=== PATIENT | male | born 1970 | race African-American/Black ===

== ENCOUNTER 2020-05-24 14:16 | Inpatient (IN) | payer OTHER, MEDICAID ==
[~2020-05-24] VITALS: Ht 185.4 cm; Wt 92.0 kg
[~2020-05-24 14:16] MED LIST: ACET500T68 PO; ARIP20TA5 PO; CARBAMIDE PEROXIDE; CLOT15CR23 TP; DIPH50CA PO; DIVA-53 PO; DOCU50LI14 PO; EUCA1LOZ MM; HALO5TAB PO; HYDR-3135 PO; HYDR59LO TP; LOPE2TAB27 PO; LORA10TA3 PO; MAGN400O7 PO; METH454P PO; PSEU-57 PO; [UNRECOGNIZED DRUG - CODE] PO; [UNRECOGNIZED DRUG - CODE] PO
--- NOTE | 2020-05-24 15:57 | RAD ---
Exam: Left foot 3 views INDICATION: The third digit cellulitis TECHNIQUE: Frontal, lateral and oblique views of the left foot Comparisons: None FINDINGS: Bone mineralization is normal. No acute or healed fractures. Soft tissues are unremarkable. Joint spaces are well-maintained. IMPRESSION: No acute osseous abnormality. Electronically signed by: Teresa Zhang MD (05/24/2020 3:54 PM) KARYNA
[2020-05-24] MEDS ORDERED: HALOPERIDOL LACTATE 5 MG/ML VIAL. ONE (16:04)
[2020-05-24] MEDS ORDERED: HALOPERIDOL LACTATE 5 MG/ML VIAL. IM ONE ×2 (16:15→16:45)
[2020-05-24] MEDS ORDERED: MORPHINE SULFATE 2 MG/ML VIAL. IV/SQ PRN (16:15)
[2020-05-24] MEDS ORDERED: VANCOMYCIN PER PHARMACY MC ONE (16:15)
[2020-05-24] MEDS ORDERED: IV NORMAL SALINE 1000ML BAG 1,000 ML IV ONE (16:15)
[2020-05-24] MEDS ORDERED: PIPERACILLIN/TAZOBACTAM 4.5 GM in IV NORMAL SALINE 100ML 100 ML IV ONE (16:30)
[2020-05-24] MEDS ORDERED: VANCOMYCIN 2 GM in IV NORMAL SALINE 500ML BAG 500 ML IV ONE (17:00)
[2020-05-24 17:29] LABS: BASO # 0.1 x10^3/uL (0.0-0.2); BASO % 1 % (0-3); EOS # 0.1 x10^3/uL (0.0-0.7); EOS % 1 % (0-3); HEMATOCRIT 44.3 % (39.0-53.0); LYMPH # 1.5 x10^3/uL (1.0-4.8); LYMPH % 21 % (24-48); MEAN CORPUSCULAR HEMOGLOBIN 30 pg (25-35); MEAN CORPUSCULAR HGB CONC 34 g/dL (31-37); MEAN CORPUSCULAR VOLUME 88 fL (79-100); MONO # 0.9 x10^3/uL (0.0-1.1); MONO % 12 % (0-9); NEUT # 4.7 x10^3/uL (1.8-7.7); NEUT % 65 % (31-73); PLATELET COUNT 149 x10^3/uL (140-400); RED BLOOD COUNT 5.03 x10^6/uL (4.30-5.70); RED CELL DISTRIBUTION WIDTH 14.3 % (11.5-14.5); WHITE BLOOD COUNT 7.2 x10^3/uL (4.0-11.0)
--- NOTE | 2020-05-24 17:32 | PHYS DOC ---
Past Medical History Past Medical History: Seizure, Other Additional Past Medical Histor: SEASONAL ALLERGIES, MENTAL RETARDATION Past Surgical History: Other Additional Past Surgical Histo: UNKNOWN Smoking Status: Never Smoker Alcohol Use: None Drug Use: None General Adult EDM: Chief Complaint: TOE PROBLEM HPI: HPI: Patient is a 50 year old man with history of mental retardation coming from a [facility]way presenting today with left toes infection that began 3 days ago. Caregiver reports patient was seen by record center specialist today and was sent to the ED to rule out cellulitis or fracture. Patient unable to give any information. Caregiver does not have much information either. Review of Systems: Review of Systems: Constitutional: Denies fever or chills. [] Eyes: Denies change in visual acuity. [] HENT: Denies nasal congestion or sore throat. [] Respiratory: Denies cough or shortness of breath. [] Cardiovascular: Denies chest pain or edema. [] GI: Denies abdominal pain, nausea, vomiting, bloody stools or diarrhea. [] : Denies dysuria. [] Musculoskeletal: Denies back pain or joint pain. [] Integument: Reports left great toe and third toe infections Neurologic: Denies headache, focal weakness or sensory changes. [] Psychiatric: Denies depression or anxiety. [] Heart Score: Risk Factors: Risk Factors: DM, Current or recent (<one month) smoker, HTN, HLP, family history of CAD, obesity. Risk Scores: Score 0 - 3: 2.5% MACE over next 6 weeks - Discharge Home Score 4 - 6: 20.3% MACE over next 6 weeks - Admit for Clinical Observation Score 7 - 10: 72.7% MACE over next 6 weeks - Early Invasive Strategies Current Medications: Current Medications Medications (Trade) Dose Ordered Sig/Rima Start Time Stop Time Status Last Admin Dose Admin Haloperidol Lactate (Haldol Inj) 5 mg 1X ONCE 05/24/20 16:45 05/24/20 16:46 DC 05/24/20 16:45 5 MG Lorazepam (Ativan Inj) 1 mg 1X ONCE 05/24/20 17:30 05/24/20 17:31 UNV Morphine Sulfate (Morphine Sulfate) 2 mg PRN Q15MIN PRN 05/24/20 16:15 05/25/20 16:14 Piperacillin Sod/ Tazobactam Sod 4.5 gm/Sodium Chloride 100 ml @ 200 mls/hr 1X ONCE 05/24/20 16:30 05/24/20 16:59 DC Sodium Chloride 1,000 ml @ 1,000 mls/hr 1X ONCE 05/24/20 16:15 05/24/20 17:14 DC Vancomycin HCl (Vanco Per Pharmacy) 1 each 1X ONCE 05/24/20 16:15 05/24/20 16:16 UNV Vancomycin HCl 2 gm/Sodium Chloride 500 ml @ 250 mls/hr 1X ONCE 05/24/20 17:00 05/24/20 18:59 Allergies: Allergies: Allergies Coded Allergies Type Severity Reaction Last Updated Verified No Known Drug Allergies 07/31/14 No Physical Exam: PE: Constitutional: Well developed, well nourished, no acute distress, non-toxic appearance. [] HENT: Normocephalic, atraumatic, bilateral external ears normal, oropharynx mo ist, no oral exudates, nose normal. [] Eyes: PERRLA, EOMI, conjunctiva normal, no discharge. [] Neck: Normal range of motion, no tenderness, supple, no stridor. [] Cardiovascular:Heart rate regular rhythm, no murmur [] Lungs & Thorax: Bilateral breath sounds clear to auscultation [] Abdomen: Bowel sounds normal, soft, no tenderness, no masses, no pulsatile masses. [] Skin: Hammertoes, left great toe is erythematous and swollen mildly. The nail appears to be loose and fungal. Left third toe is swollen and erythematous as well. +2 left pedal pulse. Cap refill less than 2 seconds to left toes. Sensation intact. Back: No tenderness, no CVA tenderness. [] Extremities: No tenderness, no cyanosis, no clubbing, ROM intact, no edema. [] Neurologic: Alert and oriented X 1, normal motor function, normal sensory function, no focal deficits noted. [] Psychologic: mentally challenge, screaming and hollowing away Current Patient Data: Vital Signs: Vital Signs Date Time Temp Pulse Resp B/P (MAP) Pulse Ox O2 Delivery O2 Flow Rate FiO2 05/24/20 15:57 97.6 104 18 188/88 (121) 98 Room Air 97.6 EKG: EKG: [] Radiology/Procedures: Radiology/Procedures: []PROCEDURE: FOOT LEFT 3V Exam: Left foot 3 views INDICATION: The third digit cellulitis TECHNIQUE: Frontal, lateral and oblique views of the left foot Comparisons: None FINDINGS: Bone mineralization is normal. No acute or healed fractures. Soft tissues are unremarkable. Joint spaces are well-maintained. IMPRESSION: No acute osseous abnormality. Electronically signed by: Teresa Franco MD (05/24/2020 3:54 PM) [facility] DICTATED and SIGNED BY: TERESA FRANCO MD DATE: 05/24/20 1554 Course & Med Decision Making: Course & Med Decision Making Pertinent Labs and Imaging studies reviewed. (See chart for details) This is a mentally challenged 50-year-old male patient who presents to the ED today with infection to the left great toe and left third toe that the caregivers noted 3 days ago. Patient is severely mentally retarded, he is on Haldol 3 times a day 5 mg as well as Ativan 3 times a day for agitation. He had to be given several doses of the medication before he calmed down. Left foot x-rays negative for any acute findings, labs are negative for any acute findings. Spoke with Dr. Ram who accepted patient for admission. Will start patient on antibiotics Jose Alberto Disclaimer: Jose Alberto Disclaimer: This electronic medical record was generated, in whole or in part, using a voice recognition dictation system. Departure Departure Impression: Primary Impression: Onychomycosis Additional Impression: Cellulitis of toe of left foot Disposition: 09 ADMITTED INPT THIS HOSP Condition: STABLE Referrals: ANDREY HANCOCK MD (PCP) MARCIN DIAZ APRN May 24, 2020 17:32
[2020-05-24 17:37] LABS: CALCIUM 8.5 mg/dL (8.5-10.1); CREATININE 1.1 mg/dL (0.7-1.3); GFR 85.4; POTASSIUM 4.4 mmol/L (3.5-5.1)
[2020-05-24 17:41] LABS: PROTHROMBIN TIME PATIENT 12.9 SEC (11.7-14.0)
[2020-05-24 17:43] LABS: ALBUMIN 3.2 g/dL (3.4-5.0); ALBUMIN/GLOBULIN RATIO 0.8 (1.0-1.7); TOTAL BILIRUBIN 0.3 mg/dL (0.2-1.0); TOTAL PROTEIN 7.1 g/dL (6.4-8.2)
--- NOTE | 2020-05-24 19:08 | PDOC1 ---
History and Physical Date of Service: DOS: DATE: 05/24/20 TIME: 19:06 Chief Complaint: Chief Complain: Possible infection of the toe History of Present Illness: HPI: 50 year old man with history of intellectual disability coming from a [facility] presenting today with left toes infection that began 3 days ago. Caregiver reports patient was seen by csr technician today and was sent to the ED to rule out cellulitis or fracture. Patient unable to give any information. Caregiver does not have much information either. Patient was seen and examined by me in the ED. Patient would not allow me to examine his belly or his toes. Patient is nonverbal and unable to communicate properly his wants or needs. Past Medical/Surgical History: PMH/PSH: Past Medical History: Seizure, SEASONAL ALLERGIES, intellectual disability Past Surgical History: UNKNOWN Allergies: Allergies: Coded Allergies: No Known Drug Allergies (Unverified , 07/31/14) Family History: Family History: Reviewed and none reported Social History: Social History: Smoking Status: Never Smoker Alcohol Use: None Drug Use: None Current Medications: Current Medications Current Medications Haloperidol Lactate (Haldol Inj) 5 mg STK-MED ONCE .ROUTE ; Start 05/24/20 at 16:04; Stop 05/24/20 at 16:04; Status DC Haloperidol Lactate (Haldol Inj) 5 mg 1X ONCE IM Last administered on 05/24/20at 16:10; Start 05/24/20 at 16:15; Stop 05/24/20 at 16:16; Status DC Piperacillin Sod/ Tazobactam Sod 4.5 gm/Sodium Chloride 100 ml @ 200 mls/hr 1X ONCE IV Last administered on 05/24/20at 17:20; Start 05/24/20 at 16:30; Stop 05/24/20 at 16:59; Status DC Vancomycin HCl (Vanco Per Pharmacy) 1 each 1X ONCE [facility] ; Start 05/24/20 at 16:15; Stop 05/24/20 at 17:35; Status DC Morphine Sulfate (Morphine Sulfate) 2 mg PRN Q15MIN PRN IV/SQ PAIN GREATER THAN 3/10; Start 05/24/20 at 16:15; Stop 05/25/20 at 16:14 Sodium Chloride 1,000 ml @ 1,000 mls/hr 1X ONCE IV Last administered on 05/24/20at 17:20; Start 05/24/20 at 16:15; Stop 05/24/20 at 17:14; Status DC Vancomycin HCl 2 gm/Sodium Chloride 500 ml @ 250 mls/hr 1X ONCE IV Last administered on 05/24/20at 18:20; Start 05/24/20 at 17:00; Stop 05/24/20 at 18:59; Status DC Lorazepam (Ativan Inj) 2 mg STK-MED ONCE .ROUTE ; Start 05/24/20 at 16:30; Stop 05/24/20 at 16:31; Status DC Lorazepam (Ativan Inj) 1 mg 1X ONCE IM Last administered on 05/24/20at 16:45; Start 05/24/20 at 16:45; Stop 05/24/20 at 16:46; Status DC Haloperidol Lactate (Haldol Inj) 5 mg 1X ONCE IM Last administered on 05/24/20at 16:45; Start 05/24/20 at 16:45; Stop 05/24/20 at 16:46; Status DC Lorazepam (Ativan Inj) 1 mg 1X ONCE IVP Last administered on 05/24/20at 17:30; Start 05/24/20 at 17:30; Stop 05/24/20 at 17:31; Status DC Lorazepam (Ativan Inj) 1 mg 1X ONCE IVP ; Start 05/24/20 at 18:45; Stop 05/24/20 at 18:46; Status DC Active Scripts Active Reported Sudogest (Pseudoephedrine Hcl) 30 Mg Tablet 30 Mg PO PRN Loperamide (Loperamide Hcl) 2 Mg Tablet 2 Mg PO PRN Hydrocortisone 59 Ml Lotion 1 Shaun TP PRN Linwood 10-325 Tablet (Acetaminophen/Hydrocodone Bitart) 1 Each Tablet 1 Tab PO PRN Q6HRS PRN Gnp Tussin Dm Max Liquid (Guaifenesin/Dextromethorphan) 118 Ml Liquid 2 Tsp PO Q4HRS PRN Milk Of Magnesia (Magnesium Hydroxide) 400 Mg/5 Ml Oral.susp 400 Mg PO PRN Gnp Cough Drops (Eucalyptus/Menthol) 1 Each Lozenge 1 Each MM PRN Gnp Antacid Anti-Gas Liquid (Mag Hydrox/Al Hydrox/Simeth) 355 Ml Oral.susp Unknown Dose PO PRN Diphenhydramine Hcl 50 Mg Capsule 25 Mg PO PRN [debrox solution 6%] Clotrimazole 15 Gm Cream..g. 1 Shaun TP BID Acetaminophen 500 Mg Tablet 1 Tab PO Q4-6HRS PRN Citrucel Powder (Methylcellulose (With Sugar)) 454 Gm Powder 1 PO DAILY Silace (Docusate Sodium) 50 Mg/5 Ml Liquid 10 Ml PO QHS Loratadine 10 Mg Tablet 1 Tab PO DAILY Haloperidol 5 Mg Tablet 5 Mg PO TID Divalproex Sodium 500 Mg Tablet.dr 500 Mg PO TID Abilify (Aripiprazole) 20 Mg Tablet 1 Tab PO DAILY ROS: Review of Systems Review of System REVIEW OF SYSTEMS: GENERAL: Denies weakness SKIN: No bruising, hair changes or rashes. EYES: No blurred, double or loss of vision. NOSE AND THROAT: No history of nosebleeds, hoarseness or sore throat. HEART: No history of palpitations, chest pain or shortness of breath on exertion. LUNGS: Denies cough, hemoptysis, wheezing or shortness of breath. GASTROINTESTINAL: Denies changes in appetite, nausea, vomiting, diarrhea or constipation. GENITOURINARY: No history of frequency, urgency, hesitancy or nocturia. NEUROLOGIC: Denies history of numbness, tingling, or tremor. PSYCHIATRIC: No history of panic, anxiety or depression. ENDOCRINE: No history of heat or cold intolerance, polyuria or polydipsia. EXTREMITIES: Denies joint pain, pain on walking or stiffness. Physical Exam: Vital Signs: Vital Signs Date Time Temp Pulse Resp B/P (MAP) Pulse Ox O2 Delivery O2 Flow Rate FiO2 05/24/20 15:57 97.6 104 18 188/88 (121) 98 Room Air 97.6 Physcial Exam: GEN: No apparent distress. Alert and oriented HEENT: Normal cephalic, atraumatic, external auditory canals are patent EYES: Extraocular muscles are intact, pupil are equally round and reactive to light and accommodation MUSCULOSKELETAL: Well developed , well nourished, good range of motion ENDOCRINE: No thyromegaly was palpated LYMPHATICS: No cervical chain or axillary nodes were noted HEMATOPOIETIC: No bruising NECK: Supple, no JVD, no thyromegaly was noted LUNGS: Clear to auscultation in all lung bernstein without rhonchi or wheezing HEART: RRR, S!, S2 present. Peripheral pulses intact, no obvious murmurs noted ABDOMEN: Soft, nontender. Positive bowel sounds, no organomegaly, normal bowel sounds EXTREMITIES: Without clubbing, cyanosis, or edema. Pedal pulses intact. Negative Homans sign NEUROLOGIC: Normal speech and tone. A&O x 3, moves all extremities, no obvious focal deficits PSYCHIATRIC: Normal affect, normal mood. Stable SKIN: No ulcerations or rashes, good skin turgor, no jaundice VASCULAR: Good capillary refill, neurovascular bundle appears to be intact Labs: Labs: Laboratory Tests Test 05/24/20 17:15 White Blood Count 7.2 x10^3/uL (4.0-11.0) Red Blood Count 5.03 x10^6/uL (4.30-5.70) Hemoglobin 15.0 g/dL (13.0-17.5) Hematocrit 44.3 % (39.0-53.0) Mean Corpuscular Volume 88 fL (79-100) Mean Corpuscular Hemoglobin 30 pg (25-35) Mean Corpuscular Hemoglobin Concent 34 g/dL (31-37) Red Cell Distribution Width 14.3 % (11.5-14.5) Platelet Count 149 x10^3/uL (140-400) Neutrophils (%) (Auto) 65 % (31-73) Lymphocytes (%) (Auto) 21 % (24-48) Monocytes (%) (Auto) 12 % (0-9) Eosinophils (%) (Auto) 1 % (0-3) Basophils (%) (Auto) 1 % (0-3) Neutrophils # (Auto) 4.7 x10^3/uL (1.8-7.7) Lymphocytes # (Auto) 1.5 x10^3/uL (1.0-4.8) Monocytes # (Auto) 0.9 x10^3/uL (0.0-1.1) Eosinophils # (Auto) 0.1 x10^3/uL (0.0-0.7) Basophils # (Auto) 0.1 x10^3/uL (0.0-0.2) Prothrombin Time 12.9 SEC (11.7-14.0) Prothromb Time International Ratio 1.0 (0.8-1.1) Activated Partial Thromboplast Time 28 SEC (24-38) Sodium Level 142 mmol/L (136-145) Potassium Level 4.4 mmol/L (3.5-5.1) Chloride Level 107 mmol/L (98-107) Carbon Dioxide Level 28 mmol/L (21-32) Anion Gap 7 (6-14) Blood Urea Nitrogen 20 mg/dL (8-26) Creatinine 1.1 mg/dL (0.7-1.3) Estimated GFR (Cockcroft-Gault) 85.4 BUN/Creatinine Ratio 18 (6-20) Glucose Level 208 mg/dL (70-99) Lactic Acid Level 1.5 mmol/L (0.4-2.0) Calcium Level 8.5 mg/dL (8.5-10.1) Total Bilirubin 0.3 mg/dL (0.2-1.0) Aspartate Amino Transf (AST/SGOT) 27 U/L (15-37) Alanine Aminotransferase (ALT/SGPT) 26 U/L (16-63) Alkaline Phosphatase 56 U/L (46-116) Creatine Kinase 340 U/L (39-308) Creatine Kinase MB (Mass) 2.8 ng/mL (0.0-3.6) Creatine Kinase MB Relative Index 0.8 % (0-4) Total Protein 7.1 g/dL (6.4-8.2) Albumin 3.2 g/dL (3.4-5.0) Albumin/Globulin Ratio 0.8 (1.0-1.7) Lipase 111 U/L (73-393) Procalcitonin < 0.10 ng/mL (0.00-0.10) Laboratory Tests Test 05/24/20 17:15 White Blood Count 7.2 x10^3/uL (4.0-11.0) Red Blood Count 5.03 x10^6/uL (4.30-5.70) Hemoglobin 15.0 g/dL (13.0-17.5) Hematocrit 44.3 % (39.0-53.0) Mean Corpuscular Volume 88 fL (79-100) Mean Corpuscular Hemoglobin 30 pg (25-35) Mean Corpuscular Hemoglobin Concent 34 g/dL (31-37) Red Cell Distribution Width 14.3 % (11.5-14.5) Platelet Count 149 x10^3/uL (140-400) Neutrophils (%) (Auto) 65 % (31-73) Lymphocytes (%) (Auto) 21 % (24-48) Monocytes (%) (Auto) 12 % (0-9) Eosinophils (%) (Auto) 1 % (0-3) Basophils (%) (Auto) 1 % (0-3) Neutrophils # (Auto) 4.7 x10^3/uL (1.8-7.7) Lymphocytes # (Auto) 1.5 x10^3/uL (1.0-4.8) Monocytes # (Auto) 0.9 x10^3/uL (0.0-1.1) Eosinophils # (Auto) 0.1 x10^3/uL (0.0-0.7) Basophils # (Auto) 0.1 x10^3/uL (0.0-0.2) Prothrombin Time 12.9 SEC (11.7-14.0) Prothromb Time International Ratio 1.0 (0.8-1.1) Activated Partial Thromboplast Time 28 SEC (24-38) Sodium Level 142 mmol/L (136-145) Potassium Level 4.4 mmol/L (3.5-5.1) Chloride Level 107 mmol/L (98-107) Carbon Dioxide Level 28 mmol/L (21-32) Anion Gap 7 (6-14) Blood Urea Nitrogen 20 mg/dL (8-26) Creatinine 1.1 mg/dL (0.7-1.3) Estimated GFR (Cockcroft-Gault) 85.4 BUN/Creatinine Ratio 18 (6-20) Glucose Level 208 mg/dL (70-99) Lactic Acid Level 1.5 mmol/L (0.4-2.0) Calcium Level 8.5 mg/dL (8.5-10.1) Total Bilirubin 0.3 mg/dL (0.2-1.0) Aspartate Amino Transf (AST/SGOT) 27 U/L (15-37) Alanine Aminotransferase (ALT/SGPT) 26 U/L (16-63) Alkaline Phosphatase 56 U/L (46-116) Creatine Kinase 340 U/L (39-308) Creatine Kinase MB (Mass) 2.8 ng/mL (0.0-3.6) Creatine Kinase MB Relative Index 0.8 % (0-4) Total Protein 7.1 g/dL (6.4-8.2) Albumin 3.2 g/dL (3.4-5.0) Albumin/Globulin Ratio 0.8 (1.0-1.7) Lipase 111 U/L (73-393) Procalcitonin < 0.10 ng/mL (0.00-0.10) Images: Images FOOT XR IMPRESSION: No acute osseous abnormality. Assessment/Plan Assessment/Plan Acute cellulitis of the lower extremity digits Concern for gangrene of the left third toe Intellectual disability Hyperglycemia Admit to medicine for further management Ortho consult Wound care consult Continue IV vancomycin Lovenox for DVT prophylaxis ADA diet Full code Discussed with RN and SW Disposition pending evaluation as mentioned above Surrogate decision maker is [facility] Justifications for Admission Other Justification CARLEY ESCALANTE MD May 24, 2020 19:08
[2020-05-24] MEDS ORDERED: ONDANSETRON PF 4 MG/2 ML VIAL. IV PRN (19:15)
[2020-05-24] MEDS ORDERED: DEXTROSE 50% 25 GM / 50ML DISP.SYRIN. IV PRN (20:30)
[2020-05-24] MEDS ORDERED: MAGNESIUM SULFATE 2GM 50 ML IV SCH (20:30)
[2020-05-24] MEDS ORDERED: ACETAMINOPHEN 325 MG TABLET. PO PRN (20:30)
[2020-05-24] MEDS ORDERED: POTASSIUM CHLORIDE 10MEQ 100 ML IV PRN (20:30)
[2020-05-24] MEDS ORDERED: DOCUSATE SODIUM 100 MG CAPSULE. PO PRN (20:30)
[2020-05-24] MEDS ORDERED: POTASSIUM CHLORIDE 20 MEQ TABLET.ER. PO PRN (20:30)
[2020-05-24] MEDS ORDERED: ONDANSETRON PF 4 MG/2 ML VIAL. IVP PRN (20:30)
[2020-05-24] MEDS ORDERED: POTASSIUM CHLORIDE 10MEQ 100 ML IV SCH (20:30)
[2020-05-24] MEDS ORDERED: VANCOMYCIN 1 GM in IV DEXTROSE 5% 250 ML IV ONE (20:30)
[2020-05-24] MEDS ORDERED: SENNOSIDES 8.6 MG TABLET PO PRN (20:30)
[2020-05-24 20:45] VITALS: BP 122/76
[2020-05-24] MEDS ORDERED: ELECTROLYTE (NON-ICU) PROTOCOL. MC PRN (20:45)
[2020-05-24] MEDS ORDERED: MAGNESIUM OXIDE 400 MG TABLET PO SCH (21:00)
[2020-05-24] MEDS: VANCOMYCIN PER PHARMACY MC PRN (21:31)
--- NOTE | 2020-05-24 21:33 | NUR ---
Pharmacy Vancomycin Dosing Note S:Consulted to monitor and dose vancomycin started . O:ANDREY LOERA is a 50 year old M with Cellulitis . Height: 6 feet, 1 inches Weight: 92.0 kg Nelson Body Weight: 79.90 Adjusted Body Weight: 84.74 Dosing Weight: Actual Other Antibiotics: NONE LABS: Last BUN: 20 Last Creatinine: 1.1 Creatinine Clearance: 95 mL/min Last WBC: 7.2 Last Procalcitonin: - Tmax (past 24 hours): 97.6 Microbiology: I/O: 550/ Drug Levels: Last level: on at Last dose given 05/24/20 at 1700 Vancomycin Dosing: Loading Dose: 2000 mg x1 Dosing Weight: Actual Target Trough: 10-20 A: Based on: WEIGHT, CRCL~95 P: 1. INITIATE Vancomycin 1250 mg IV q12h AFTER 2000 MG LOADING DOSE 2. Follow up Trough level on 05/26/20 at 0430 3. Pharmacy will continue to monitor, follow and adjust therapy as needed. NANCY ADAMES, [facility], 05/24/20 [id number]
[2020-05-24] MEDS: HALOPERIDOL LACTATE 5 MG/ML VIAL. IVP PRN (23:02)
[2020-05-25] MEDS ORDERED: HALOPERIDOL LACTATE 5 MG/ML VIAL. IVP PRN (01:15)
[2020-05-25] MEDS: HALOPERIDOL LACTATE 5 MG/ML VIAL. IVP PRN ×4 (01:17→07:52)
[2020-05-25 03:14] VITALS: BP 101/49
[2020-05-25] MEDS ORDERED: VANCOMYCIN 1.25 GM in IV NORMAL SALINE 250ML 250 ML IV SCH (05:00)
[2020-05-25 07:00] VITALS: BP 134/70
[2020-05-25] MEDS: INSULIN LISPRO 300 UNITS/3 ML VIAL. SQ SCH ×3 (08:00→16:47)
[2020-05-25] MEDS: ENOXAPARIN 40 MG/0.4 ML SYRINGE. SQ SCH (09:00)
[2020-05-25 09:11] LABS: BASO % 0 % (0-3); EOS # 0.2 x10^3/uL (0.0-0.7); EOS % 3 % (0-3); HEMATOCRIT 42.1 % (39.0-53.0); HEMOGLOBIN 13.9 g/dL (13.0-17.5); LYMPH # 1.3 x10^3/uL (1.0-4.8); LYMPH % 23 % (24-48); MEAN CORPUSCULAR HEMOGLOBIN 29 pg (25-35); MEAN CORPUSCULAR HGB CONC 33 g/dL (31-37); MEAN CORPUSCULAR VOLUME 89 fL (79-100); MONO # 0.9 x10^3/uL (0.0-1.1); MONO % 15 % (0-9); NEUT # 3.4 x10^3/uL (1.8-7.7); NEUT % 59 % (31-73); PLATELET COUNT 143 x10^3/uL (140-400); RED BLOOD COUNT 4.75 x10^6/uL (4.30-5.70); RED CELL DISTRIBUTION WIDTH 14.4 % (11.5-14.5); WHITE BLOOD COUNT 5.7 x10^3/uL (4.0-11.0)
[2020-05-25 09:27] LABS: CREATININE 0.9 mg/dL (0.7-1.3); GFR 107.6; MAGNESIUM 1.9 mg/dL (1.8-2.4); PHOSPHORUS 2.8 mg/dL (2.6-4.7); POTASSIUM 4.4 mmol/L (3.5-5.1)
--- NOTE | 2020-05-25 09:59 | NUR ---
lovenox nonadmin as pt is up multiple times through out morning walking halls.
--- NOTE | 2020-05-25 10:15 | NUR ---
Wound Care: Patient seen per wound care consult. There is no open wound at this time. The left 3rd toe appears discolored like bruising, but there are no open areas and the nail is intact. X-Ray was negative. Patient unable to provide any information due to mental disability. Ortho has been consulted. Will follow up on 06/01/20 just to reassess toe has remained closed.
--- NOTE | 2020-05-25 10:39 | PDOC2 ---
CONSULT Date of Consult Date of Consult DATE: 05/25/20 TIME: 10:39 Reason for Consult Reason for Consult: infection left toes Identification/Chief Complaint Chief Complaint Possible infection left toes Source Source: Caregiver, Chart review History of Present Illness Reason for Visit: This 50-year-old man is unable to give a history, but lives in a facility and has a problem with his left toes. There was concern there might be infection. He has onychomycosis. The left third toe has turned purple. Current Problem List Problem List Problems Medical Problems: (1) Cellulitis of toe of left foot Status: Acute (2) Onychomycosis Status: Acute Current Medications Current Medications Current Medications Haloperidol Lactate (Haldol Inj) 5 mg STK-MED ONCE .ROUTE ; Start 05/24/20 at 16:04; Stop 05/24/20 at 16:04; Status DC Haloperidol Lactate (Haldol Inj) 5 mg 1X ONCE IM Last administered on 05/24/20at 16:10; Start 05/24/20 at 16:15; Stop 05/24/20 at 16:16; Status DC Piperacillin Sod/ Tazobactam Sod 4.5 gm/Sodium Chloride 100 ml @ 200 mls/hr 1X ONCE IV Last administered on 05/24/20at 17:20; Start 05/24/20 at 16:30; Stop 05/24/20 at 16:59; Status DC Vancomycin HCl (Vanco Per Pharmacy) 1 each 1X ONCE MC Last administered on 05/24/20at 16:15; Start 05/24/20 at 16:15; Stop 05/24/20 at 17:35; Status DC Morphine Sulfate (Morphine Sulfate) 2 mg PRN Q15MIN PRN IV/SQ PAIN GREATER THAN 3/10; Start 05/24/20 at 16:15; Stop 05/25/20 at 16:14 Sodium Chloride 1,000 ml @ 1,000 mls/hr 1X ONCE IV Last administered on 05/24/20at 17:20; Start 05/24/20 at 16:15; Stop 05/24/20 at 17:14; Status DC Vancomycin HCl 2 gm/Sodium Chloride 500 ml @ 250 mls/hr 1X ONCE IV Last administered on 05/24/20at 18:20; Start 05/24/20 at 17:00; Stop 05/24/20 at 18:59; Status DC Lorazepam (Ativan Inj) 2 mg STK-MED ONCE .ROUTE ; Start 05/24/20 at 16:30; Stop 05/24/20 at 16:31; Status DC Lorazepam (Ativan Inj) 1 mg 1X ONCE IM Last administered on 05/24/20at 16:45; Start 05/24/20 at 16:45; Stop 05/24/20 at 16:46; Status DC Haloperidol Lactate (Haldol Inj) 5 mg 1X ONCE IM Last administered on 05/24/20at 16:45; Start 05/24/20 at 16:45; Stop 05/24/20 at 16:46; Status DC Lorazepam (Ativan Inj) 1 mg 1X ONCE IVP Last administered on 05/24/20at 17:30; Start 05/24/20 at 17:30; Stop 05/24/20 at 17:31; Status DC Lorazepam (Ativan Inj) 1 mg 1X ONCE IVP Last administered on 05/24/20at 20:00; Start 05/24/20 at 18:45; Stop 05/24/20 at 18:46; Status DC Ondansetron HCl (Zofran) 4 mg PRN Q8HRS PRN IV NAUSEA/VOMITING; Start 05/24/20 at 19:15; Stop 05/25/20 at 19:14 Haloperidol Lactate (Haldol Inj) 5 mg TID PRN PRN IVP AGITATION Last administered on 05/25/20at 07:52; Start 05/24/20 at 19:15 Lorazepam (Ativan Inj) 1 mg TID PRN PRN IVP ANXIETY / AGITATION Last administered on 05/25/20at 08:25; Start 05/24/20 at 19:15 Sennosides (Senna) 17.2 mg PRN BID PRN PO CONSTIPATION; Start 05/24/20 at 20:30 Docusate Sodium (Colace) 100 mg PRN DAILY PRN PO HARD STOOLS; Start 05/24/20 at 20:30 Ondansetron HCl (Zofran) 4 mg PRN Q6HRS PRN IVP NAUSEA/VOMITING; Start 05/24/20 at 20:30 Potassium Chloride (Klor-Con) 40 meq 1X PRN PO PER PROTOCOL; Start 05/24/20 at 20:30; Status UNV Magnesium Oxide (Magnesium Oxide) 400 mg BID PO ; Start 05/24/20 at 21:00; Stop 05/26/20 at 09:01; Status UNV Potassium Chloride/Water 100 ml @ 100 mls/hr Q1H IV ; Start 05/24/20 at 20:30; Stop 05/25/20 at 00:29; Status UNV Magnesium Sulfate 50 ml @ 25 mls/hr Q24H IV ; Start 05/24/20 at 20:30; Stop 05/26/20 at 22:29; Status UNV Potassium Chloride/Water 100 ml @ 100 mls/hr Q1H PRN IV low k; Start 05/24/20 at 20:30; Status UNV Insulin Human Lispro (HumaLOG) 0-5 UNITS TIDWMEALS SQ ; Start 05/25/20 at 08:00 Dextrose (Dextrose 50%-Water Syringe) 12.5 gm PRN Q15MIN PRN IV SEE COMMENTS; Start 05/24/20 at 20:30 Acetaminophen (Tylenol) 650 mg PRN Q4HRS PRN PO TEMP OVER 100.4F OR MILD PAIN; Start 05/24/20 at 20:30 Vancomycin HCl 1 gm/Dextrose 250 ml @ 250 mls/hr 1X ONCE IV ; Start 05/24/20 at 20:30; Stop 05/24/20 at 20:34; Status DC Vancomycin HCl (Vanco Per Pharmacy) 1 each PRN DAILY PRN MC SEE COMMENTS Last administered on 05/24/20at 21:31; Start 05/24/20 at 20:30 Enoxaparin Sodium (Lovenox 40mg Syringe) 40 mg Q24H SQ ; Start 05/25/20 at 09:00 Info (Non-Icu Electrolyte Protocol) 1 ea CONT PRN PRN MC SEE COMMENTS; Start 05/24/20 at 20:45 Vancomycin HCl 1.25 gm/Sodium Chloride 250 ml @ 167 mls/hr Q12H IV Last administered on 05/25/20at 07:14; Start 05/25/20 at 05:00 Vancomycin HCl (Vancomycin Trough Level) 1 each 1X ONCE MC ; Start 05/26/20 at 04:30; Stop 05/26/20 at 04:31 Haloperidol Lactate (Haldol Inj) 2 mg PRN Q15MIN PRN IVP AGGITATION Last administered on 05/25/20at 03:52; Start 05/25/20 at 01:15; Stop 05/25/20 at 07:00; Status DC Haloperidol Lactate (Haldol Inj) 2 mg 1X PRN IVP AGITATION; Start 05/25/20 at 01:15; Stop 05/25/20 at 01:30; Status DC Lorazepam (Ativan Inj) 1 mg 1X ONCE IVP Last administered on 05/25/20at 01:17; Start 05/25/20 at 01:15; Stop 05/25/20 at 01:16; Status DC Active Scripts Active Reported Sudogest (Pseudoephedrine Hcl) 30 Mg Tablet 30 Mg PO PRN Loperamide (Loperamide Hcl) 2 Mg Tablet 2 Mg PO PRN Hydrocortisone 59 Ml Lotion 1 Shaun TP PRN Paradise 10-325 Tablet (Acetaminophen/Hydrocodone Bitart) 1 Each Tablet 1 Tab PO PRN Q6HRS PRN Gnp Tussin Dm Max Liquid (Guaifenesin/Dextromethorphan) 118 Ml Liquid 2 Tsp PO Q4HRS PRN Milk Of Magnesia (Magnesium Hydroxide) 400 Mg/5 Ml Oral.susp 400 Mg PO PRN Gnp Cough Drops (Eucalyptus/Menthol) 1 Each Lozenge 1 Each MM PRN Gnp Antacid Anti-Gas Liquid (Mag Hydrox/Al Hydrox/Simeth) 355 Ml Oral.susp Unknown Dose PO PRN Diphenhydramine Hcl 50 Mg Capsule 25 Mg PO PRN [debrox solution 6%] Clotrimazole 15 Gm Cream..g. 1 Shaun TP BID Acetaminophen 500 Mg Tablet 1 Tab PO Q4-6HRS PRN Citrucel Powder (Methylcellulose (With Sugar)) 454 Gm Powder 1 PO DAILY Silace (Docusate Sodium) 50 Mg/5 Ml Liquid 10 Ml PO QHS Loratadine 10 Mg Tablet 1 Tab PO DAILY Haloperidol 5 Mg Tablet 5 Mg PO TID Divalproex Sodium 500 Mg Tablet.dr 500 Mg PO TID Abilify (Aripiprazole) 20 Mg Tablet 1 Tab PO DAILY Allergies Allergies: Coded Allergies: No Known Drug Allergies (Unverified , 07/31/14) Physical Exam Physical Exam When I arrived he was attempting to walk in the ramirez after his bed alarm went off, and he was being corralled gently by an RN back to his room, and then he ran back into the room without difficulty and without a limp. I convinced him to have a seat, and remove his left sock so I could examine his toes. He does have onychomycosis of multiple toenails. 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 The left third toe is purple in color: this appears to be ecchymosis and a probable contusion. There is no erythema or drainage. There is minimal swelling. There is no break in the skin. There is no purulence or abscess. There are some chronic toe issues and acute ecchymosis, but I do not see any evidence of surgically drainable lesion, and other than the toenail onychomycosis I don't suspect any infection. Based on his activity level (he apparently runs at his bed and then dives into the bed) I suspect he has a severe soft tissue injury (sprain, contusion or similar) to the toe. General: Alert, mild distress HEENT: Atraumatic Lungs: Normal air movement Heart: Regular rate Abdomen: Soft Extremities: Normal pulses Neuro: Normal gait Psych/Mental Status: Other (able to verbalize slightly and indicate his general wants and needs) Vitals VITALS Vital Signs Date Time Temp Pulse Resp B/P (MAP) Pulse Ox O2 Delivery O2 Flow Rate FiO2 05/25/20 07:00 97.8 89 18 134/70 (91) 98 Room Air 97.8 Labs Labs Laboratory Tests Test 05/24/20 17:15 05/24/20 22:08 05/25/20 08:48 White Blood Count 7.2 x10^3/uL (4.0-11.0) 5.7 x10^3/uL (4.0-11.0) Red Blood Count 5.03 x10^6/uL (4.30-5.70) 4.75 x10^6/uL (4.30-5.70) Hemoglobin 15.0 g/dL (13.0-17.5) 13.9 g/dL (13.0-17.5) Hematocrit 44.3 % (39.0-53.0) 42.1 % (39.0-53.0) Mean Corpuscular Volume 88 fL (79-100) 89 fL (79-100) Mean Corpuscular Hemoglobin 30 pg (25-35) 29 pg (25-35) Mean Corpuscular Hemoglobin Concent 34 g/dL (31-37) 33 g/dL (31-37) Red Cell Distribution Width 14.3 % (11.5-14.5) 14.4 % (11.5-14.5) Platelet Count 149 x10^3/uL (140-400) 143 x10^3/uL (140-400) Neutrophils (%) (Auto) 65 % (31-73) 59 % (31-73) Lymphocytes (%) (Auto) 21 % (24-48) 23 % (24-48) Monocytes (%) (Auto) 12 % (0-9) 15 % (0-9) Eosinophils (%) (Auto) 1 % (0-3) 3 % (0-3) Basophils (%) (Auto) 1 % (0-3) 0 % (0-3) Neutrophils # (Auto) 4.7 x10^3/uL (1.8-7.7) 3.4 x10^3/uL (1.8-7.7) Lymphocytes # (Auto) 1.5 x10^3/uL (1.0-4.8) 1.3 x10^3/uL (1.0-4.8) Monocytes # (Auto) 0.9 x10^3/uL (0.0-1.1) 0.9 x10^3/uL (0.0-1.1) Eosinophils # (Auto) 0.1 x10^3/uL (0.0-0.7) 0.2 x10^3/uL (0.0-0.7) Basophils # (Auto) 0.1 x10^3/uL (0.0-0.2) 0.0 x10^3/uL (0.0-0.2) Prothrombin Time 12.9 SEC (11.7-14.0) Prothromb Time International Ratio 1.0 (0.8-1.1) Activated Partial Thromboplast Time 28 SEC (24-38) Sodium Level 142 mmol/L (136-145) 145 mmol/L (136-145) Potassium Level 4.4 mmol/L (3.5-5.1) 4.4 mmol/L (3.5-5.1) Chloride Level 107 mmol/L (98-107) 112 mmol/L (98-107) Carbon Dioxide Level 28 mmol/L (21-32) 26 mmol/L (21-32) Anion Gap 7 (6-14) 7 (6-14) Blood Urea Nitrogen 20 mg/dL (8-26) 14 mg/dL (8-26) Creatinine 1.1 mg/dL (0.7-1.3) 0.9 mg/dL (0.7-1.3) Estimated GFR (Cockcroft-Gault) 85.4 107.6 BUN/Creatinine Ratio 18 (6-20) Glucose Level 208 mg/dL (70-99) 124 mg/dL (70-99) Lactic Acid Level 1.5 mmol/L (0.4-2.0) Calcium Level 8.5 mg/dL (8.5-10.1) 8.0 mg/dL (8.5-10.1) Total Bilirubin 0.3 mg/dL (0.2-1.0) Aspartate Amino Transf (AST/SGOT) 27 U/L (15-37) Alanine Aminotransferase (ALT/SGPT) 26 U/L (16-63) Alkaline Phosphatase 56 U/L (46-116) Creatine Kinase 340 U/L (39-308) Creatine Kinase MB (Mass) 2.8 ng/mL (0.0-3.6) Creatine Kinase MB Relative Index 0.8 % (0-4) Total Protein 7.1 g/dL (6.4-8.2) Albumin 3.2 g/dL (3.4-5.0) Albumin/Globulin Ratio 0.8 (1.0-1.7) Lipase 111 U/L (73-393) Procalcitonin < 0.10 ng/mL (0.00-0.10) Glucose (Fingerstick) 96 mg/dL (70-99) Phosphorus Level 2.8 mg/dL (2.6-4.7) Magnesium Level 1.9 mg/dL (1.8-2.4) Laboratory Tests Test 05/24/20 17:15 05/24/20 22:08 05/25/20 08:48 White Blood Count 7.2 x10^3/uL (4.0-11.0) 5.7 x10^3/uL (4.0-11.0) Red Blood Count 5.03 x10^6/uL (4.30-5.70) 4.75 x10^6/uL (4.30-5.70) Hemoglobin 15.0 g/dL (13.0-17.5) 13.9 g/dL (13.0-17.5) Hematocrit 44.3 % (39.0-53.0) 42.1 % (39.0-53.0) Mean Corpuscular Volume 88 fL (79-100) 89 fL (79-100) Mean Corpuscular Hemoglobin 30 pg (25-35) 29 pg (25-35) Mean Corpuscular Hemoglobin Concent 34 g/dL (31-37) 33 g/dL (31-37) Red Cell Distribution Width 14.3 % (11.5-14.5) 14.4 % (11.5-14.5) Platelet Count 149 x10^3/uL (140-400) 143 x10^3/uL (140-400) Neutrophils (%) (Auto) 65 % (31-73) 59 % (31-73) Lymphocytes (%) (Auto) 21 % (24-48) 23 % (24-48) Monocytes (%) (Auto) 12 % (0-9) 15 % (0-9) Eosinophils (%) (Auto) 1 % (0-3) 3 % (0-3) Basophils (%) (Auto) 1 % (0-3) 0 % (0-3) Neutrophils # (Auto) 4.7 x10^3/uL (1.8-7.7) 3.4 x10^3/uL (1.8-7.7) Lymphocytes # (Auto) 1.5 x10^3/uL (1.0-4.8) 1.3 x10^3/uL (1.0-4.8) Monocytes # (Auto) 0.9 x10^3/uL (0.0-1.1) 0.9 x10^3/uL (0.0-1.1) Eosinophils # (Auto) 0.1 x10^3/uL (0.0-0.7) 0.2 x10^3/uL (0.0-0.7) Basophils # (Auto) 0.1 x10^3/uL (0.0-0.2) 0.0 x10^3/uL (0.0-0.2) Prothrombin Time 12.9 SEC (11.7-14.0) Prothromb Time International Ratio 1.0 (0.8-1.1) Activated Partial Thromboplast Time 28 SEC (24-38) Sodium Level 142 mmol/L (136-145) 145 mmol/L (136-145) Potassium Level 4.4 mmol/L (3.5-5.1) 4.4 mmol/L (3.5-5.1) Chloride Level 107 mmol/L (98-107) 112 mmol/L (98-107) Carbon Dioxide Level 28 mmol/L (21-32) 26 mmol/L (21-32) Anion Gap 7 (6-14) 7 (6-14) Blood Urea Nitrogen 20 mg/dL (8-26) 14 mg/dL (8-26) Creatinine 1.1 mg/dL (0.7-1.3) 0.9 mg/dL (0.7-1.3) Estimated GFR (Cockcroft-Gault) 85.4 107.6 BUN/Creatinine Ratio 18 (6-20) Glucose Level 208 mg/dL (70-99) 124 mg/dL (70-99) Lactic Acid Level 1.5 mmol/L (0.4-2.0) Calcium Level 8.5 mg/dL (8.5-10.1) 8.0 mg/dL (8.5-10.1) Total Bilirubin 0.3 mg/dL (0.2-1.0) Aspartate Amino Transf (AST/SGOT) 27 U/L (15-37) Alanine Aminotransferase (ALT/SGPT) 26 U/L (16-63) Alkaline Phosphatase 56 U/L (46-116) Creatine Kinase 340 U/L (39-308) Creatine Kinase MB (Mass) 2.8 ng/mL (0.0-3.6) Creatine Kinase MB Relative Index 0.8 % (0-4) Total Protein 7.1 g/dL (6.4-8.2) Albumin 3.2 g/dL (3.4-5.0) Albumin/Globulin Ratio 0.8 (1.0-1.7) Lipase 111 U/L (73-393) Procalcitonin < 0.10 ng/mL (0.00-0.10) Glucose (Fingerstick) 96 mg/dL (70-99) Phosphorus Level 2.8 mg/dL (2.6-4.7) Magnesium Level 1.9 mg/dL (1.8-2.4) Images Images [facility] [address] [place] [address] IMAGING REPORT Signed PATIENT: ANDREY LOERA ACCOUNT: [id number] : 1970 LOCATION: ER AGE: 50 SEX: M EXAM STATUS: REG ER ORD. PHYSICIAN: LISA RIZZO MD REASON: 3RD DIGIT CELLULITIS VS FRACTURE/CONTUSION PROCEDURE: FOOT LEFT 3V Exam: Left foot 3 views INDICATION: The third digit cellulitis TECHNIQUE: Frontal, lateral and oblique views of the left foot Comparisons: None FINDINGS: Bone mineralization is normal. No acute or healed fractures. Soft tissues are unremarkable. Joint spaces are well-maintained. IMPRESSION: No acute osseous abnormality. Electronically signed by: Teresa Franco MD (05/24/2020 3:54 PM) [facility] DICTATED and SIGNED BY: TERESA FRANCO MD DATE: 05/24/20 1554 Assessment/Plan Assessment/Plan I suspect he had a significant toe contusion and now has ecchymosis of the left third toe. X-rays do not show any significant fracture or dislocation. I do not see evidence of infection other than the chronic onychomycosis. I recommend symptomatic treatment only and I do not believe he requires follow-up. CHRISTOPHER DOMINGUEZ MD May 25, 2020 10:39
[2020-05-25 10:45] VITALS: BP 127/89
[2020-05-25] MEDS ORDERED: BENZ2TAB5 PO (11:22)
--- NOTE | 2020-05-25 11:25 | NUR ---
Pt is NPO, Pt would also not let staff check blood sugar level
[2020-05-25] MEDS: VANCOMYCIN PER PHARMACY MC PRN (13:31)
--- NOTE | 2020-05-25 13:39 | PDOC ---
[employer] PROGRESS NOTE Date of Service DOS: DATE: 05/25/20 TIME: 13:35 Chief Complaint Chief Complaint Acute cellulitis of the lower extremity digits Concern for gangrene of the left third toe Intellectual disability Hyperglycemia Acute agitation Admit to medicine for further management Pending Ortho evaluation Wound care consult Continue IV vancomycin IV Haldol and Ativan as needed for acute agitation Lovenox for DVT prophylaxis ADA diet Full code Discussed with RN and SW Disposition pending evaluation as mentioned above Surrogate decision maker is [facility] History of Present Illness History of Present Illness 50 year old man with history of intellectual disability coming from a nursing home presenting today with left toes infection that began 3 days ago. Caregiver reports patient was seen by general maintenance helper today and was sent to the ED to rule out cellulitis or fracture. Patient unable to give any information. Caregiver does not have much information either. Patient was seen and examined by me in the ED. Patient would not allow me to examine his belly or his toes. Patient is nonverbal and unable to communicate properly his wants or needs. Vitals/I&O Vitals/I&O: Vital Signs Date Time Temp Pulse Resp B/P (MAP) Pulse Ox O2 Delivery O2 Flow Rate FiO2 05/25/20 10:45 97.7 100 18 127/89 (102) 97 Room Air 97.7 I & O 05/24/20 05/24/20 05/25/20 15:00 23:00 07:00 Intake Total 550 ml Balance 550 ml Physical Exam Physical Exam: GEN: No apparent distress. Alert and oriented HEENT: Normal cephalic, atraumatic, external auditory canals are patent NECK: Supple, no JVD, no thyromegaly was noted LUNGS: Bilateral clear HEART: RRR, S1, S2 present. Peripheral pulses intact, no obvious murmurs noted ABDOMEN: Soft, nontender. Positive bowel sounds, no organomegaly, normal bowel sounds EXTREMITIES: Without clubbing, cyanosis, or edema. Pedal pulses intact. Negative Homans sign. Left third toe with no acute changes since admission. Labs Labs: Laboratory Tests Test 05/24/20 17:15 05/24/20 22:08 05/25/20 08:48 White Blood Count 7.2 x10^3/uL (4.0-11.0) 5.7 x10^3/uL (4.0-11.0) Red Blood Count 5.03 x10^6/uL (4.30-5.70) 4.75 x10^6/uL (4.30-5.70) Hemoglobin 15.0 g/dL (13.0-17.5) 13.9 g/dL (13.0-17.5) Hematocrit 44.3 % (39.0-53.0) 42.1 % (39.0-53.0) Mean Corpuscular Volume 88 fL (79-100) 89 fL (79-100) Mean Corpuscular Hemoglobin 30 pg (25-35) 29 pg (25-35) Mean Corpuscular Hemoglobin Concent 34 g/dL (31-37) 33 g/dL (31-37) Red Cell Distribution Width 14.3 % (11.5-14.5) 14.4 % (11.5-14.5) Platelet Count 149 x10^3/uL (140-400) 143 x10^3/uL (140-400) Neutrophils (%) (Auto) 65 % (31-73) 59 % (31-73) Lymphocytes (%) (Auto) 21 % (24-48) 23 % (24-48) Monocytes (%) (Auto) 12 % (0-9) 15 % (0-9) Eosinophils (%) (Auto) 1 % (0-3) 3 % (0-3) Basophils (%) (Auto) 1 % (0-3) 0 % (0-3) Neutrophils # (Auto) 4.7 x10^3/uL (1.8-7.7) 3.4 x10^3/uL (1.8-7.7) Lymphocytes # (Auto) 1.5 x10^3/uL (1.0-4.8) 1.3 x10^3/uL (1.0-4.8) Monocytes # (Auto) 0.9 x10^3/uL (0.0-1.1) 0.9 x10^3/uL (0.0-1.1) Eosinophils # (Auto) 0.1 x10^3/uL (0.0-0.7) 0.2 x10^3/uL (0.0-0.7) Basophils # (Auto) 0.1 x10^3/uL (0.0-0.2) 0.0 x10^3/uL (0.0-0.2) Prothrombin Time 12.9 SEC (11.7-14.0) Prothromb Time International Ratio 1.0 (0.8-1.1) Activated Partial Thromboplast Time 28 SEC (24-38) Sodium Level 142 mmol/L (136-145) 145 mmol/L (136-145) Potassium Level 4.4 mmol/L (3.5-5.1) 4.4 mmol/L (3.5-5.1) Chloride Level 107 mmol/L (98-107) 112 mmol/L (98-107) Carbon Dioxide Level 28 mmol/L (21-32) 26 mmol/L (21-32) Anion Gap 7 (6-14) 7 (6-14) Blood Urea Nitrogen 20 mg/dL (8-26) 14 mg/dL (8-26) Creatinine 1.1 mg/dL (0.7-1.3) 0.9 mg/dL (0.7-1.3) Estimated GFR (Cockcroft-Gault) 85.4 107.6 BUN/Creatinine Ratio 18 (6-20) Glucose Level 208 mg/dL (70-99) 124 mg/dL (70-99) Lactic Acid Level 1.5 mmol/L (0.4-2.0) Calcium Level 8.5 mg/dL (8.5-10.1) 8.0 mg/dL (8.5-10.1) Total Bilirubin 0.3 mg/dL (0.2-1.0) Aspartate Amino Transf (AST/SGOT) 27 U/L (15-37) Alanine Aminotransferase (ALT/SGPT) 26 U/L (16-63) Alkaline Phosphatase 56 U/L (46-116) Creatine Kinase 340 U/L (39-308) Creatine Kinase MB (Mass) 2.8 ng/mL (0.0-3.6) Creatine Kinase MB Relative Index 0.8 % (0-4) Total Protein 7.1 g/dL (6.4-8.2) Albumin 3.2 g/dL (3.4-5.0) Albumin/Globulin Ratio 0.8 (1.0-1.7) Lipase 111 U/L (73-393) Procalcitonin < 0.10 ng/mL (0.00-0.10) Glucose (Fingerstick) 96 mg/dL (70-99) Phosphorus Level 2.8 mg/dL (2.6-4.7) Magnesium Level 1.9 mg/dL (1.8-2.4) Assessment and Plan Assessmemt and Plan Problems Medical Problems: (1) Cellulitis of toe of left foot Status: Acute (2) Onychomycosis Status: Acute Comment Review of Relevant I have reviewed the following items zenobia (where applicable) has been applied. Medications: Current Medications Medications (Trade) Dose Ordered Sig/Rima Route PRN Reason Start Time Stop Time Status Last Admin Dose Admin Haloperidol Lactate (Haldol Inj) 5 mg 1X ONCE IM 05/24/20 16:15 05/24/20 16:16 DC 05/24/20 16:10 Piperacillin Sod/ Tazobactam Sod 4.5 gm/Sodium Chloride 100 ml @ 200 mls/hr 1X ONCE IV 05/24/20 16:30 05/24/20 16:59 DC 05/24/20 17:20 Vancomycin HCl (Vanco Per Pharmacy) 1 each 1X ONCE MC 05/24/20 16:15 05/24/20 17:35 DC 05/24/20 16:15 Sodium Chloride 1,000 ml @ 1,000 mls/hr 1X ONCE IV 05/24/20 16:15 05/24/20 17:14 DC 05/24/20 17:20 Vancomycin HCl 2 gm/Sodium Chloride 500 ml @ 250 mls/hr 1X ONCE IV 05/24/20 17:00 05/24/20 18:59 DC 05/24/20 18:20 Lorazepam (Ativan Inj) 1 mg 1X ONCE IM 05/24/20 16:45 05/24/20 16:46 DC 05/24/20 16:45 Haloperidol Lactate (Haldol Inj) 5 mg 1X ONCE IM 05/24/20 16:45 05/24/20 16:46 DC 05/24/20 16:45 Lorazepam (Ativan Inj) 1 mg 1X ONCE IVP 05/24/20 17:30 05/24/20 17:31 DC 05/24/20 17:30 Lorazepam (Ativan Inj) 1 mg 1X ONCE IVP 05/24/20 18:45 05/24/20 18:46 DC 05/24/20 20:00 Haloperidol Lactate (Haldol Inj) 5 mg TID PRN PRN IVP AGITATION 05/24/20 19:15 05/25/20 07:52 Lorazepam (Ativan Inj) 1 mg TID PRN PRN IVP ANXIETY 05/24/20 19:15 05/25/20 08:25 Vancomycin HCl (Vanco Per Pharmacy) 1 each PRN DAILY PRN MC SEE COMMENTS 05/24/20 20:30 05/24/20 21:31 Vancomycin HCl 1.25 gm/Sodium Chloride 250 ml @ 167 mls/hr Q12H IV 05/25/20 05:00 05/25/20 07:14 Haloperidol Lactate (Haldol Inj) 2 mg PRN Q15MIN PRN IVP AGGITATION 05/25/20 01:15 05/25/20 07:00 DC 05/25/20 03:52 Lorazepam (Ativan Inj) 1 mg 1X ONCE IVP 05/25/20 01:15 05/25/20 01:16 DC 05/25/20 01:17 Justifications for Admission Other Justification Possible gangrene of the 3rd toe CARLEY ESCALANTE MD May 25, 2020 13:39
[2020-05-25] MEDS ORDERED: PSEUDOEPHEDRINE 30 MG TABLET. PO PRN (14:25)
--- NOTE | 2020-05-25 14:29 | NUR ---
SW following. Spoke with RN and reviewed chart. Pt from [facility], , (fax). Pt currently on IV Vancomycin and room air. KARISHMA spoke with [place] pt's house steward/stewardess from [facility]. Pt's screaming is baseline for pt. [facility] can't manage IV abx so if this is needed long-term then pt will need SNU on discharge. SW awaiting results from consult to Dr. Ware. SW following.
[2020-05-25] MEDS ORDERED: MAGNESIUM HYDROXIDE 2,400 MG/30 ML ORAL.SUSP. PO PRN (14:30)
[2020-05-25 15:00] VITALS: BP 138/74
[2020-05-25] MEDS: DIVALPROEX DELAYED RELEASE 500 MG TABLET.DR. PO SCH ×2 (16:01→21:19)
[2020-05-25] MEDS: HALOPERIDOL 5 MG TABLET. PO SCH ×2 (16:02→21:07)
--- NOTE | 2020-05-25 16:48 | NUR ---
Pt refused to have staff check his blood sugar level
[2020-05-25 19:00] VITALS: BP 117/88
[2020-05-25] MEDS ORDERED: HALOPERIDOL LACTATE 5 MG/ML VIAL. IM/IV PRN (19:15)
[2020-05-25] MEDS ORDERED: DOCUSATE 100 MG/10 ML SOLUTION. PO SCH (21:00)
[2020-05-25] MEDS: DOXYCYCLINE HYCLATE 100 MG TABLET PO SCH (21:17)
[2020-05-25 23:00] VITALS: BP 121/86
[2020-05-26 03:00] VITALS: BP 137/65
[2020-05-26 07:00] VITALS: BP 136/83
[2020-05-26 07:10] LABS: CALCIUM 8.1 mg/dL (8.5-10.1); GFR 95.3; POTASSIUM 4.4 mmol/L (3.5-5.1)
[2020-05-26] MEDS: INSULIN LISPRO 300 UNITS/3 ML VIAL. SQ SCH ×2 (07:35→12:00)
[2020-05-26] MEDS ORDERED: DOXY100T PO (07:54)
--- NOTE | 2020-05-26 07:55 | DISCH ---
DISCHARGE INSTRUCTIONS Condition on Discharge Condition on Discharge: Stable (Continue doxycycline for 3 more days) Activity After Discharge Activity Instructions for Disc: Activity as tolerated Weight Bearing Status after Di: No restrictions Diet after Discharge Diet after Discharge: Regular Checks after Discharge DC Comment: CBC, CMP within 1 week Follow-Up Follow up with: PCP within 2 weeks of discharge CARLEY ESCALANTE MD May 26, 2020 07:55
[2020-05-26] MEDS: ENOXAPARIN 40 MG/0.4 ML SYRINGE. SQ SCH (09:00)
[2020-05-26] MEDS: HALOPERIDOL 5 MG TABLET. PO SCH ×2 (09:29→14:03)
[2020-05-26] MEDS: DIVALPROEX DELAYED RELEASE 500 MG TABLET.DR. PO SCH ×2 (09:29→14:03)
[2020-05-26] MEDS: DOXYCYCLINE HYCLATE 100 MG TABLET PO SCH (09:29)
[2020-05-26 10:53] VITALS: BP 132/94
--- NOTE | 2020-05-26 14:05 | NUR ---
SW following. Spoke with RN and reviewed chart. Pt to discharge home today, 05/26 on oral medications to [facility]. SW spoke with Chelsey ([phone]) to coordinate the discharge. Transportation arranged for 1430. RN to call report. Packet of clinicals ready to be sent with pt. No further SW needs at this time.
--- NOTE | 2020-05-26 14:56 | NUR ---
Pt got picked up by [facility] at the main entrance. Pt got his IV taken out. All discharge paperwork and instructions was given to the Pt's hog driver. Pt was stable leaving the unit.
[2020-05-26] MEDS ORDERED: LACTOBACILLUS RHAMNOSUS GG 1 CAPSULE. PO SCH (21:00)
--- NOTE | 2020-05-27 21:27 | PDOC3 ---
[facility]-Discharge Summary Date of Admission: Date of Admission: May 24, 2020 Date of Discharge: Date of Discharge: May 26, 2020 Admission Diagnosis: Admitting Diagnosis: Acute cellulitis of the lower extremity digits Concern for gangrene of the left third toe Intellectual disability Hyperglycemia Acute agitation Discharge Diagnosis: Discharge Diagnosis: Acute cellulitis of the lower extremity digits Concern for gangrene of the left third toe Intellectual disability Hyperglycemia Acute agitation Consults: Consults: orthopedic surgery Hospital Course: Hospital Course: 50 year old man with history of intellectual disability coming from a halfway presenting today with left toes infection that began 3 days ago. Caregiver reports patient was seen by flavoring maker today and was sent to the ED to rule out cellulitis or fracture. Patient unable to give any information. Caregiver does not have much information either. Patient was seen and examined by me in the ED. Patient would not allow me to examine his belly or his toes. Patient is nonverbal and unable to communicate properly his wants or needs. Patient was evaluated by ortho and he was determined no need for surgical inte rvention. Patient was sent home with a 5 day course of doxycycline. The rest of his hospital course was uneventful. Disposition: Disposition/Orders: D/C to Another Facility Activity: Activity: Resume previous activity Diet: Diet: Regular Medications: Home Meds Active Scripts Doxycycline Hyclate (DOXYCYCLINE HYCLATE) 100 Mg Tablet, 100 MG PO BID for cellulitis for 3 Days, #6 TAB Prov:CARLEY ESCALANTE MD 05/26/20 Reported Medications Benztropine Mesylate (BENZTROPINE MESYLATE) 2 Mg Tablet, 2 MG PO HS for tremors, TAB 05/25/20 Pseudoephedrine Hcl (SUDOGEST) 30 Mg Tablet, 30 MG PO PRN for NASAL CONGESTION 07/31/14 Loperamide Hcl (LOPERAMIDE) 2 Mg Tablet, 2 MG PO PRN for DIARRHEA 07/31/14 Hydrocortisone (HYDROCORTISONE) 59 Ml Lotion, 1 DEREK TP PRN for ITCHING, #60 ML 07/31/14 Guaifenesin/Dextromethorphan (GNP TUSSIN DM MAX LIQUID) 118 Ml Liquid, 2 TSP PO Q4HRS PRN for COUGH, LIQUID 07/31/14 Magnesium Hydroxide (MILK OF MAGNESIA) 400 Mg/5 Ml Oral.susp, 400 MG PO PRN for CONSTIPATION 07/31/14 Eucalyptus/Menthol (GNP COUGH DROPS) 1 Each Lozenge, 1 EACH MM PRN for COUGH, LOZENGE 07/31/14 Mag Hydrox/Al Hydrox/Simeth (GNP ANTACID ANTI-GAS LIQUID) 355 Ml Oral.susp, PO PRN for HEARTBURN / GAS 07/31/14 Diphenhydramine Hcl (DIPHENHYDRAMINE HCL) 50 Mg Capsule, 25 MG PO PRN for ALLERGIES 07/31/14 [debrox solution 6%] No Conflict Check 07/31/14 Acetaminophen (ACETAMINOPHEN) 500 Mg Tablet, 1 TAB PO Q4-6HRS PRN for PAIN / TEMP, #60 TAB 07/31/14 Methylcellulose (With Sugar) (CITRUCEL POWDER) 454 Gm Powder, 1 PO DAILY 07/31/14 Docusate Sodium (SILACE) 50 Mg/5 Ml Liquid, 10 ML PO QHS, LIQUID 07/31/14 Loratadine (LORATADINE) 10 Mg Tablet, 1 TAB PO DAILY, #30 TAB 5 Refills 07/31/14 Haloperidol (HALOPERIDOL) 5 Mg Tablet, 10 MG PO TID for agitation, #60 TAB 1 Refill 07/31/14 Divalproex Sodium (DIVALPROEX SODIUM) 500 Mg Tablet.dr, 500 MG PO TID, TAB 07/31/14 Scheduled Benztropine Mesylate (Benztropine Mesylate), 2 MG PO HS, (Reported) Divalproex Sodium (Divalproex Sodium), 500 MG PO TID, (Reported) Docusate Sodium (Silace), 10 ML PO QHS, (Reported) Doxycycline Hyclate (Doxycycline Hyclate), 100 MG PO BID Haloperidol (Haloperidol), 10 MG PO TID, (Reported) Loratadine (Loratadine), 1 TAB PO DAILY, (Reported) Methylcellulose (With Sugar) (Citrucel Powder), 1 PO DAILY, (Reported) Scheduled PRN Acetaminophen (Acetaminophen), 1 TAB PO Q4-6HRS PRN for PAIN / TEMP, (Reported) Diphenhydramine Hcl (Diphenhydramine Hcl), 25 MG PO for ALLERGIES, (Reported) Eucalyptus/Menthol (Gnp Cough Drops), 1 EACH MM for COUGH, (Reported) Guaifenesin/Dextromethorphan (Gnp Tussin Dm Max Liquid), 2 TSP PO Q4HRS PRN for COUGH, (Reported) Hydrocortisone (Hydrocortisone), 1 DEREK TP for ITCHING, (Reported) Loperamide Hcl (Loperamide), 2 MG PO for DIARRHEA, (Reported) Mag Hydrox/Al Hydrox/Simeth (Gnp Antacid Anti-Gas Liquid), Unknown Dose PO for HEARTBURN / GAS, (Reported) Magnesium Hydroxide (Milk Of Magnesia), 400 MG PO for CONSTIPATION, (Reported) Pseudoephedrine Hcl (Sudogest), 30 MG PO for NASAL CONGESTION, (Reported) Miscellaneous Medications [debrox solution 6%], (Reported) Total Time: Total Time: Total time spent was 25 minutes in preparing scripts, discharge planning with SW and RN, and preparing this discharge summary. Patient seen and examined on day of discharge. Justicifation of Admission Dx: Justifications for Admission: Justification of Admission Dx: Yes Cellulitis: Cellulitis CARLEY ESCALANTE MD May 27, 2020 21:27
== END 2020-05-26 14:50 | disposition home or self-care (01) | DRG 603 ==
LOC: ER 14:16 → ED HOLD 18:45 → 5 NORTH 19:58
PROVIDERS: ADMIT Internal Medicine; ATTEND Internal Medicine
DX: L03.032 Cellulitis of left toe (principal); F72 Severe intellectual disabilities; I96 Gangrene, not elsewhere classified; B35.1 Tinea unguium; R73.9 Hyperglycemia, unspecified
CPT/HCPCS: 36415; 73630; 80048; 80053; 80202; 82553; 82962; 83605; 83690; 83735; 84100; 84145; 85025; 85610; 85730; 87040; 96365; 96366; 96368; 96372; 96375; 99285; J1630; J1815; J2060; J2543; J3370; J7030; J7040; J7050; 97116-GP; G0378

== ENCOUNTER 2021-01-10 17:21 | Inpatient (IN) | payer OTHER, MEDICAID ==
[~2021-01-10] VITALS: Ht 182.9 cm; Wt 71.6 kg
[~2021-01-10 17:21] MED LIST changes: +BENZ2TAB5 PO; +DOXY100T PO
[2021-01-10] MEDS ORDERED: HALOPERIDOL 5 MG TABLET. PO ONE (20:30)
[2021-01-10 21:42] LABS: BASO # 0.1 x10^3/uL (0.0-0.2); BASO % 1 % (0-3); EOS # 0.1 x10^3/uL (0.0-0.7); EOS % 1 % (0-3); HEMATOCRIT 44.1 % (39.0-53.0); HEMOGLOBIN 14.7 g/dL (13.0-17.5); LYMPH # 1.7 x10^3/uL (1.0-4.8); LYMPH % 18 % (24-48); MEAN CORPUSCULAR HEMOGLOBIN 30 pg (25-35); MEAN CORPUSCULAR HGB CONC 33 g/dL (31-37); MEAN CORPUSCULAR VOLUME 90 fL (79-100); MONO # 1.3 x10^3/uL (0.0-1.1); MONO % 14 % (0-9); NEUT # 6.3 x10^3/uL (1.8-7.7); NEUT % 66 % (31-73); PLATELET COUNT 157 x10^3/uL (140-400); RED BLOOD COUNT 4.92 x10^6/uL (4.30-5.70); WHITE BLOOD COUNT 9.5 x10^3/uL (4.0-11.0)
[2021-01-10 21:57] LABS: CALCIUM 8.8 mg/dL (8.5-10.1); GFR 95.3; POTASSIUM 4.3 mmol/L (3.5-5.1)
[2021-01-10 22:02] LABS: ALBUMIN 3.4 g/dL (3.4-5.0); ALBUMIN/GLOBULIN RATIO 0.9 (1.0-1.7); MAGNESIUM 1.8 mg/dL (1.8-2.4); TOTAL BILIRUBIN 0.3 mg/dL (0.2-1.0); TOTAL PROTEIN 7.4 g/dL (6.4-8.2)
--- NOTE | 2021-01-10 22:27 | RAD ---
EXAM: AP, oblique and lateral views of the right foot DATE: 01/10/2021 8:47 PM INDICATION: Reason: osteomyelitis / soft tissue swelling COMPARISON: No Prior FINDINGS/ IMPRESSION: Hallux valgus with lateral subluxation of the sesamoids. Hallux MTP DJD. Soft tissue swelling about t he forefoot. Electronically signed by: Richard Aldana MD (01/10/2021 10:25 PM) B[facility]AK
[2021-01-10] MEDS ORDERED: VANCOMYCIN 1.75 GM in IV NORMAL SALINE 500ML BAG 500 ML IV ONE (22:30)
[2021-01-10 23:04] LABS: BILIRUBIN,URINE NEGATIVE (NEG); CLARITY,URINE CLEAR; COLOR,URINE YELLOW; NITRITE,URINE NEGATIVE (NEG); PH,URINE 6.5 (<5.0-8.0); PROTEIN,URINE NEGATIVE (NEG-TRACE)
[2021-01-10 23:11] LABS: BACTERIA,URINE 0 /HPF (0-FEW); RBC,URINE 0 /HPF (0-2); WBC,URINE 0 /HPF (0-4)
--- NOTE | 2021-01-10 23:32 | ED.ADGEN ---
Past Medical History Past Medical History: Seizure, Other Additional Past Medical Histor: SEASONAL ALLERGIES, MENTAL RETARDATION Past Surgical History: Other Additional Past Surgical Histo: UNKNOWN Smoking Status: Unknown if ever smoked Alcohol Use: None Drug Use: None General Adult EDM: Chief Complaint: CELLULITIS HPI: HPI: Patient is a 50-year-old male with severe autism who presents to the emergency room with a wound to his third toe on his right foot. Patient saw his factory process workers today who recommended that he come here for admission and evaluation for possible osteomyelitis. Is unclear exactly when the wound started. Patient is unable to provide any history. He has not had any kind of fever. He has been walking is normal. Review of Systems: Review of Systems: Unable to obtain Current Medications: Current Medications Medications (Trade) Dose Ordered Sig/Rima Start Time Stop Time Status Last Admin Dose Admin Haloperidol (Haldol) 10 mg 1X ONCE 01/10/21 20:30 01/10/21 20:31 DC 01/10/21 20:38 10 MG Lorazepam (Ativan) 2 mg 1X ONCE 01/10/21 20:30 01/10/21 20:31 DC 01/10/21 20:38 2 MG Allergies: Allergies: Allergies Coded Allergies Type Severity Reaction Last Updated Verified No Known Drug Allergies 07/31/14 No Physical Exam: PE: Constitutional: Well developed, well nourished, no acute distress, non-toxic appearance. [] HENT: Normocephalic, atraumatic, bilateral external ears normal, oropharynx moist, no oral exudates, nose normal. [] Eyes: PERRLA, EOMI, conjunctiva normal, no discharge. [] Neck: Normal range of motion, no tenderness, supple, no stridor. [] Cardiovascular:Heart rate regular rhythm, no murmur [] Lungs & Thorax: Bilateral breath sounds clear to auscultation [] Abdomen: Bowel sounds normal, soft, no tenderness, no masses, no pulsatile masses. [] Skin: Warm, dry, no erythema, no rash. [] Back: No tenderness, no CVA tenderness. [] Extremities: No tenderness, no cyanosis, no clubbing, ROM intact, no edema. [] Neurologic: Alert and oriented X 3, normal motor function, normal sensory function, no focal deficits noted. [] Psychologic: Affect normal, judgement normal, mood normal. [] Current Patient Data: Labs: Laboratory Tests Test 01/10/21 21:25 White Blood Count 9.5 x10^3/uL (4.0-11.0) Red Blood Count 4.92 x10^6/uL (4.30-5.70) Hemoglobin 14.7 g/dL (13.0-17.5) Hematocrit 44.1 % (39.0-53.0) Mean Corpuscular Volume 90 fL (79-100) Mean Corpuscular Hemoglobin 30 pg (25-35) Mean Corpuscular Hemoglobin Concent 33 g/dL (31-37) Red Cell Distribution Width 14.0 % (11.5-14.5) Platelet Count 157 x10^3/uL (140-400) Neutrophils (%) (Auto) 66 % (31-73) Lymphocytes (%) (Auto) 18 % (24-48) L Monocytes (%) (Auto) 14 % (0-9) H Eosinophils (%) (Auto) 1 % (0-3) Basophils (%) (Auto) 1 % (0-3) Neutrophils # (Auto) 6.3 x10^3/uL (1.8-7.7) Lymphocytes # (Auto) 1.7 x10^3/uL (1.0-4.8) Monocytes # (Auto) 1.3 x10^3/uL (0.0-1.1) H Eosinophils # (Auto) 0.1 x10^3/uL (0.0-0.7) Basophils # (Auto) 0.1 x10^3/uL (0.0-0.2) Sodium Level 142 mmol/L (136-145) Potassium Level 4.3 mmol/L (3.5-5.1) Chloride Level 107 mmol/L (98-107) Carbon Dioxide Level 29 mmol/L (21-32) Anion Gap 6 (6-14) Blood Urea Nitrogen 11 mg/dL (8-26) Creatinine 1.0 mg/dL (0.7-1.3) Estimated GFR (Cockcroft-Gault) 95.3 BUN/Creatinine Ratio 11 (6-20) Glucose Level 107 mg/dL (70-99) H Lactic Acid Level 1.1 mmol/L (0.4-2.0) Calcium Level 8.8 mg/dL (8.5-10.1) Magnesium Level 1.8 mg/dL (1.8-2.4) Total Bilirubin 0.3 mg/dL (0.2-1.0) Aspartate Amino Transferase (AST) 14 U/L (15-37) L Alanine Aminotransferase (ALT) 20 U/L (16-63) Alkaline Phosphatase 58 U/L (46-116) Total Protein 7.4 g/dL (6.4-8.2) Albumin 3.4 g/dL (3.4-5.0) Albumin/Globulin Ratio 0.9 (1.0-1.7) L Laboratory Tests 01/10/21 21:25 Laboratory Tests 01/10/21 21:25 Vital Signs: Vital Signs Date Time Temp Pulse Resp B/P (MAP) Pulse Ox O2 Delivery O2 Flow Rate FiO2 01/10/21 20:03 97.6 74 20 159/98 (118) 99 Room Air 97.6 EKG: EKG: [] Heart Score: C/O Chest Pain: N/A Risk Factors: Risk Factors: DM, Current or recent (<one month) smoker, HTN, HLP, family history of CAD, obesity. Risk Scores: Score 0 - 3: 2.5% MACE over next 6 weeks - Discharge Home Score 4 - 6: 20.3% MACE over next 6 weeks - Admit for Clinical Observation Score 7 - 10: 72.7% MACE over next 6 weeks - Early Invasive Strategies Radiology/Procedures: Radiology/Procedures: [] Course & Med Decision Making: Course & Med Decision Making Pertinent Labs and Imaging studies reviewed. (See chart for details) Patient is a 50-year-old male who presents to the emergency room complaining of a wound to his third toe. He does have some surrounding cellulitis. Podiatry felt that he needed admission for antibiotics and evaluation for osteomyelitis. Work-up was delayed as patient needed medications to help him calm down and allow us to put in an IV. He was given Haldol and Ativan which with his home medications for agitation. Patient will be admitted for further evaluation. Dragon Disclaimer: Dragon Disclaimer: This electronic medical record was generated, in whole or in part, using a voice recognition dictation system. Departure Departure Impression: Primary Impression: Cellulitis Additional Impression: Infected wound Disposition: ADMITTED INPATIENT Condition: STABLE Referrals: ANDREY HANCOCK MD (PCP) Problem Qualifiers LISA RIZZO MD Jan 10, 2021 23:32
[2021-01-11] VITALS: BP 136/72
[2021-01-11] MEDS ORDERED: OLANZapine 5 MG TABLET PO PRN (01:00)
[2021-01-11 02:47] VITALS: BP 159/81
[2021-01-11] MEDS ORDERED: VANCOMYCIN PER PHARMACY MC PRN (04:45)
--- NOTE | 2021-01-11 04:52 | NUR ---
Pharmacy Vancomycin Dosing Note S:Consulted to monitor and dose vancomycin started 01/10/21. O:ANDREY LOERA is a 50 year old M with Cellulitis . Height: 6 feet, 0 inches Weight: 71.6 kg [place] Body Weight: 77.60 Adjusted Body Weight: 75.20 Dosing Weight: Actual Other Antibiotics: LABS: Last BUN: 11 Last Creatinine: 1 Creatinine Clearance: 88 mL/min Last WBC: 9.5 Last Procalcitonin: Tmax (past 24 hours): Microbiology: I/O: Drug Levels: Last level: on at Last dose given 01/10/21 at 2213 Vancomycin Dosing: Loading Dose: 1750 mg x1 Dosing Weight: Actual Target Trough: 10-20 A: Based on: WT AND CRCL P: 1. Begin Vancomycin 1000 mg IV q12h 2. Follow up Trough level on 01/12/21 at 0930 3. Pharmacy will continue to monitor, follow and adjust therapy as needed. ARACELIS CAI RPH, 01/11/21 0452 Signed: 01/11/21 at 0453 by ARACELIS CAI RPH PHA
--- NOTE | 2021-01-11 06:29 | NUR ---
The patient, ANDREY LOERA, 50 y/o, M admitted by JENNA GLEASON MD, arrived on the unit at 0000 with preethi Sotelo. Pt was hooked up to monitor. Pt is alert to self and from [facility]. safety person is Ashley at [phone]. Will continue to monitor
[2021-01-11 07:00] VITALS: BP 134/72
[2021-01-11 07:29] LABS: BASO % 1 % (0-3); EOS # 0.1 x10^3/uL (0.0-0.7); EOS % 1 % (0-3); HEMATOCRIT 42.5 % (39.0-53.0); HEMOGLOBIN 14.3 g/dL (13.0-17.5); LYMPH # 1.2 x10^3/uL (1.0-4.8); LYMPH % 16 % (24-48); MEAN CORPUSCULAR HEMOGLOBIN 30 pg (25-35); MEAN CORPUSCULAR HGB CONC 34 g/dL (31-37); MEAN CORPUSCULAR VOLUME 90 fL (79-100); MONO # 0.9 x10^3/uL (0.0-1.1); MONO % 12 % (0-9); NEUT # 5.3 x10^3/uL (1.8-7.7); NEUT % 70 % (31-73); PLATELET COUNT 120 x10^3/uL (140-400); RED BLOOD COUNT 4.75 x10^6/uL (4.30-5.70); RED CELL DISTRIBUTION WIDTH 14.2 % (11.5-14.5); WHITE BLOOD COUNT 7.6 x10^3/uL (4.0-11.0)
[2021-01-11 07:48] LABS: CALCIUM 8.4 mg/dL (8.5-10.1); CREATININE 0.9 mg/dL (0.7-1.3); GFR 107.6; POTASSIUM 4.3 mmol/L (3.5-5.1)
--- NOTE | 2021-01-11 08:44 | PDOC1 ---
History and Physical Date of Admission Date of Admission DATE: 01/11/21 TIME: 08:22 Identification/Chief Complaint Chief Complaint Cellulitis right third toe Source Source: Chart review History of Present Illness History of Present Illness Patient is a 50-year-old male with past medical history severe autism, who presents from his custodial due to concerns of cellulitis in his right third toe. Patient is unable to provide medical history and much history is obtained from chart review. He was seen by his product manager medical device yesterday and was sent to the emergency room for evaluation for possible osteomyelitis. He is reportedly been walking normal. X-ray right foot showed hallux valgus with lateral subluxation of the sesamoids, hallux MTP DJD, soft tissue swelling about the forefoot without evidence of osteomyelitis. It is unclear when his cellulitis started. He received vancomycin in the ED. I was not given report that he had been treated with outpatient antibiotics, and no known history of fever. Past Medical History Past Medical History Autism, mental retardation, history of seizures Past Surgical History Past Surgical History Reviewed with patient but unable to obtain due to clinical condition Family History Family History Reviewed with patient but unable to obtain due to clinical condition Social History Smoke: No ALCOHOL: none Drugs: Other (Reviewed with patient but unable to obtain due to clinical condition) Current Problem List Problem List Problems Medical Problems: (1) Cellulitis Status: Acute (2) Infected wound Status: Acute Current Medications Current Medications Current Medications Haloperidol (Haldol) 10 mg 1X ONCE PO Last administered on 01/10/21at 20:38; Start 01/10/21 at 20:30; Stop 01/10/21 at 20:31; Status DC Lorazepam (Ativan) 2 mg 1X ONCE PO Last administered on 01/10/21at 20:38; Start 01/10/21 at 20:30; Stop 01/10/21 at 20:31; Status DC Lorazepam (Ativan) 2 mg 1X ONCE PO Last administered on 01/10/21at 21:48; Start 01/10/21 at 22:00; Stop 01/10/21 at 22:01; Status DC Vancomycin HCl 1.75 gm/Sodium Chloride 500 ml @ 250 mls/hr 1X ONCE IV Last administered on 01/10/21at 22:13; Start 01/10/21 at 22:30; Stop 01/11/21 at 00:29; Status DC Lorazepam (Ativan Inj) 2 mg PRN Q4HRS PRN IVP ANXIETY / AGITATION Last administered on 01/11/21at 06:39; Start 01/11/21 at 01:00 Olanzapine (ZyPREXA) 5 mg PRN BID PRN PO Agitation Last administered on 01/11/21at 04:07; Start 01/11/21 at 01:00 Vancomycin HCl (Vanco Per Pharmacy) 1 each PRN DAILY PRN MC SEE COMMENTS Last administered on 01/11/21at 04:51; Start 01/11/21 at 04:45 Vancomycin HCl 1 gm/Sodium Chloride 250 ml @ 250 mls/hr Q12H IV ; Start 01/11/21 at 10:00 Vancomycin HCl (Vancomycin Trough Level) 1 each 1X ONCE MC ; Start 01/12/21 at 09:30; Stop 01/12/21 at 09:31 Active Scripts Active Doxycycline Hyclate 100 Mg Tablet 100 Mg PO BID 3 Days Reported Benztropine Mesylate 2 Mg Tablet 2 Mg PO HS Sudogest (Pseudoephedrine Hcl) 30 Mg Tablet 30 Mg PO PRN Loperamide (Loperamide Hcl) 2 Mg Tablet 2 Mg PO PRN Hydrocortisone 59 Ml Lotion 1 Shaun TP PRN Gnp Tussin Dm Max Liquid (Guaifenesin/Dextromethorphan) 118 Ml Liquid 2 Tsp PO Q4HRS PRN Milk Of Magnesia (Magnesium Hydroxide) 400 Mg/5 Ml Oral.susp 400 Mg PO PRN Gnp Cough Drops (Eucalyptus/Menthol) 1 Each Lozenge 1 Each MM PRN Gnp Antacid Anti-Gas Liquid (Mag Hydrox/Al Hydrox/Simeth) 355 Ml Oral.susp Unknown Dose PO PRN Diphenhydramine Hcl 50 Mg Capsule 25 Mg PO PRN [debrox solution 6%] Acetaminophen 500 Mg Tablet 1 Tab PO Q4-6HRS PRN Citrucel Powder (Methylcellulose (With Sugar)) 454 Gm Powder 1 PO DAILY Silace (Docusate Sodium) 50 Mg/5 Ml Liquid 10 Ml PO QHS Loratadine 10 Mg Tablet 1 Tab PO DAILY Haloperidol 5 Mg Tablet 10 Mg PO TID Divalproex Sodium 500 Mg Tablet.dr 500 Mg PO TID Allergies Allergies: Coded Allergies: No Known Drug Allergies (Unverified , 07/31/14) ROS Review of System Reviewed with patient but unable to obtain due to clinical condition Physical Exam Physical Exam General: Alert, Cooperative, No acute distress HEENT: PERRLA, EOMI Lungs: Clear to auscultation, Normal air movement Heart: RRR, no murmurs Cardiovascular: S1, S2 Abdomen: Normal bowel sounds, Soft, No tenderness Extremities: Hallux valgus. No clubbing, No cyanosis Skin: Erythema and mild swelling to right third toe with skin breakdown and serous drainage in between right second and right third toe. No rashes, No significant lesion Neuro: Normal tone, Sensation intact Psych/Mental Status: Mood NL Vitals Vitals Vital Signs Date Time Temp Pulse Resp B/P (MAP) Pulse Ox O2 Delivery O2 Flow Rate FiO2 01/11/21 07:00 97.5 107 20 134/72 (92) 98 Room Air 97.5 Labs Labs Laboratory Tests Test 01/10/21 21:25 01/10/21 22:45 01/11/21 06:50 White Blood Count 9.5 x10^3/uL (4.0-11.0) 7.6 x10^3/uL (4.0-11.0) Red Blood Count 4.92 x10^6/uL (4.30-5.70) 4.75 x10^6/uL (4.30-5.70) Hemoglobin 14.7 g/dL (13.0-17.5) 14.3 g/dL (13.0-17.5) Hematocrit 44.1 % (39.0-53.0) 42.5 % (39.0-53.0) Mean Corpuscular Volume 90 fL (79-100) 90 fL (79-100) Mean Corpuscular Hemoglobin 30 pg (25-35) 30 pg (25-35) Mean Corpuscular Hemoglobin Concent 33 g/dL (31-37) 34 g/dL (31-37) Red Cell Distribution Width 14.0 % (11.5-14.5) 14.2 % (11.5-14.5) Platelet Count 157 x10^3/uL (140-400) 120 x10^3/uL (140-400) Neutrophils (%) (Auto) 66 % (31-73) 70 % (31-73) Lymphocytes (%) (Auto) 18 % (24-48) 16 % (24-48) Monocytes (%) (Auto) 14 % (0-9) 12 % (0-9) Eosinophils (%) (Auto) 1 % (0-3) 1 % (0-3) Basophils (%) (Auto) 1 % (0-3) 1 % (0-3) Neutrophils # (Auto) 6.3 x10^3/uL (1.8-7.7) 5.3 x10^3/uL (1.8-7.7) Lymphocytes # (Auto) 1.7 x10^3/uL (1.0-4.8) 1.2 x10^3/uL (1.0-4.8) Monocytes # (Auto) 1.3 x10^3/uL (0.0-1.1) 0.9 x10^3/uL (0.0-1.1) Eosinophils # (Auto) 0.1 x10^3/uL (0.0-0.7) 0.1 x10^3/uL (0.0-0.7) Basophils # (Auto) 0.1 x10^3/uL (0.0-0.2) 0.0 x10^3/uL (0.0-0.2) Sodium Level 142 mmol/L (136-145) 143 mmol/L (136-145) Potassium Level 4.3 mmol/L (3.5-5.1) 4.3 mmol/L (3.5-5.1) Chloride Level 107 mmol/L (98-107) 106 mmol/L (98-107) Carbon Dioxide Level 29 mmol/L (21-32) 31 mmol/L (21-32) Anion Gap 6 (6-14) 6 (6-14) Blood Urea Nitrogen 11 mg/dL (8-26) 11 mg/dL (8-26) Creatinine 1.0 mg/dL (0.7-1.3) 0.9 mg/dL (0.7-1.3) Estimated GFR (Cockcroft-Gault) 95.3 107.6 BUN/Creatinine Ratio 11 (6-20) Glucose Level 107 mg/dL (70-99) 108 mg/dL (70-99) Lactic Acid Level 1.1 mmol/L (0.4-2.0) Calcium Level 8.8 mg/dL (8.5-10.1) 8.4 mg/dL (8.5-10.1) Magnesium Level 1.8 mg/dL (1.8-2.4) Total Bilirubin 0.3 mg/dL (0.2-1.0) Aspartate Amino Transf (AST/SGOT) 14 U/L (15-37) Alanine Aminotransferase (ALT/SGPT) 20 U/L (16-63) Alkaline Phosphatase 58 U/L (46-116) Total Protein 7.4 g/dL (6.4-8.2) Albumin 3.4 g/dL (3.4-5.0) Albumin/Globulin Ratio 0.9 (1.0-1.7) Urine Collection Type Unknown Urine Color Yellow Urine Clarity Clear Urine pH 6.5 (<5.0-8.0) Urine Specific [place] <=1.005 (1.000-1.030) Urine Protein Negative mg/dL (NEG-TRACE) Urine Glucose (UA) Negative mg/dL (NEG) Urine Ketones (Stick) Negative mg/dL (NEG) Urine Blood Negative (NEG) Urine Nitrite Negative (NEG) Urine Bilirubin Negative (NEG) Urine Urobilinogen Dipstick 1.0 mg/dL (0.2 mg/dL) Urine Leukocyte Esterase Negative (NEG) Urine RBC 0 /HPF (0-2) Urine WBC 0 /HPF (0-4) Urine Bacteria 0 /HPF (0-FEW) Laboratory Tests Test 01/10/21 21:25 01/10/21 22:45 01/11/21 06:50 White Blood Count 9.5 x10^3/uL (4.0-11.0) 7.6 x10^3/uL (4.0-11.0) Red Blood Count 4.92 x10^6/uL (4.30-5.70) 4.75 x10^6/uL (4.30-5.70) Hemoglobin 14.7 g/dL (13.0-17.5) 14.3 g/dL (13.0-17.5) Hematocrit 44.1 % (39.0-53.0) 42.5 % (39.0-53.0) Mean Corpuscular Volume 90 fL (79-100) 90 fL (79-100) Mean Corpuscular Hemoglobin 30 pg (25-35) 30 pg (25-35) Mean Corpuscular Hemoglobin Concent 33 g/dL (31-37) 34 g/dL (31-37) Red Cell Distribution Width 14.0 % (11.5-14.5) 14.2 % (11.5-14.5) Platelet Count 157 x10^3/uL (140-400) 120 x10^3/uL (140-400) Neutrophils (%) (Auto) 66 % (31-73) 70 % (31-73) Lymphocytes (%) (Auto) 18 % (24-48) 16 % (24-48) Monocytes (%) (Auto) 14 % (0-9) 12 % (0-9) Eosinophils (%) (Auto) 1 % (0-3) 1 % (0-3) Basophils (%) (Auto) 1 % (0-3) 1 % (0-3) Neutrophils # (Auto) 6.3 x10^3/uL (1.8-7.7) 5.3 x10^3/uL (1.8-7.7) Lymphocytes # (Auto) 1.7 x10^3/uL (1.0-4.8) 1.2 x10^3/uL (1.0-4.8) Monocytes # (Auto) 1.3 x10^3/uL (0.0-1.1) 0.9 x10^3/uL (0.0-1.1) Eosinophils # (Auto) 0.1 x10^3/uL (0.0-0.7) 0.1 x10^3/uL (0.0-0.7) Basophils # (Auto) 0.1 x10^3/uL (0.0-0.2) 0.0 x10^3/uL (0.0-0.2) Sodium Level 142 mmol/L (136-145) 143 mmol/L (136-145) Potassium Level 4.3 mmol/L (3.5-5.1) 4.3 mmol/L (3.5-5.1) Chloride Level 107 mmol/L (98-107) 106 mmol/L (98-107) Carbon Dioxide Level 29 mmol/L (21-32) 31 mmol/L (21-32) Anion Gap 6 (6-14) 6 (6-14) Blood Urea Nitrogen 11 mg/dL (8-26) 11 mg/dL (8-26) Creatinine 1.0 mg/dL (0.7-1.3) 0.9 mg/dL (0.7-1.3) Estimated GFR (Cockcroft-Gault) 95.3 107.6 BUN/Creatinine Ratio 11 (6-20) Glucose Level 107 mg/dL (70-99) 108 mg/dL (70-99) Lactic Acid Level 1.1 mmol/L (0.4-2.0) Calcium Level 8.8 mg/dL (8.5-10.1) 8.4 mg/dL (8.5-10.1) Magnesium Level 1.8 mg/dL (1.8-2.4) Total Bilirubin 0.3 mg/dL (0.2-1.0) Aspartate Amino Transf (AST/SGOT) 14 U/L (15-37) Alanine Aminotransferase (ALT/SGPT) 20 U/L (16-63) Alkaline Phosphatase 58 U/L (46-116) Total Protein 7.4 g/dL (6.4-8.2) Albumin 3.4 g/dL (3.4-5.0) Albumin/Globulin Ratio 0.9 (1.0-1.7) Urine Collection Type Unknown Urine Color Yellow Urine Clarity Clear Urine pH 6.5 (<5.0-8.0) Urine Specific [place] <=1.005 (1.000-1.030) Urine Protein Negative mg/dL (NEG-TRACE) Urine Glucose (UA) Negative mg/dL (NEG) Urine Ketones (Stick) Negative mg/dL (NEG) Urine Blood Negative (NEG) Urine Nitrite Negative (NEG) Urine Bilirubin Negative (NEG) Urine Urobilinogen Dipstick 1.0 mg/dL (0.2 mg/dL) Urine Leukocyte Esterase Negative (NEG) Urine RBC 0 /HPF (0-2) Urine WBC 0 /HPF (0-4) Urine Bacteria 0 /HPF (0-FEW) Images Images FOOT RIGHT 3V EXAM: AP, oblique and lateral views of the right foot DATE: 01/10/2021 8:47 PM INDICATION: Reason: osteomyelitis / soft tissue swelling COMPARISON: No Prior FINDINGS/ IMPRESSION: Hallux valgus with lateral subluxation of the sesamoids. Hallux MTP DJD. Soft tissue swelling about the forefoot. VTE Prophylaxis Ordered VTE Prophylaxis Devices: Yes VTE Pharmacological Prophylaxi: No Assessment/Plan Assessment/Plan Cellulitis right third toe History of seizures History of autism Severe mental retardation Plan: No radiographic evidence of osteomyelitis seen on x-ray White blood cell count and vitals within normal limits I believe patient can be discharged on oral antibiotics with outpatient wound care FEN - Cardiac diet PPX - SCDs FULL CODE Dispo - inpatient for above; however I believe patient be discharged on oral Augmentin to complete 10-day course with appropriate wound care. Justifications for Admission Other Justification Possible gangrene of the 3rd toe SHYAM VALERIO MD Jan 11, 2021 08:44
[2021-01-11] MEDS ORDERED: AMOXICILLIN/K CLAV 875/125MG TABLET. PO SCH (09:00)
[2021-01-11] MEDS: DIVALPROEX DELAYED RELEASE 500 MG TABLET.DR. PO SCH ×2 (09:01→13:28)
[2021-01-11] MEDS: HALOPERIDOL 5 MG TABLET. PO SCH ×2 (09:02→13:30)
[2021-01-11] MEDS ORDERED: VANCOMYCIN 1 GM in IV NORMAL SALINE 250ML 250 ML IV SCH (10:00)
--- NOTE | 2021-01-11 10:25 | NUR ---
SS following for discharge planning. SS reviewed pt chart and discussed with pt RN. Pt is from [facility], . construction person is Yulisa, ; fax [phone]. Pt is currently on room air and medically stable for discharge. Pt needing home healthcare for wound care. SS spoke with Yulisa at [facility] [place] and was asked to use [facility], ; fax [phone]. SS was also asked to have all scripts electronically sent to [facility], [address] [place] [address], . Pt's RN notified. Clinical faxed to [facility] [place] as requested. [facility]. Pt's RN notified. Addendum: 01/11/21 at 1031 by MECHELLE NARVAEZ Per Yulisa at [facility] [place] they will transport pt to home at 1430 today. Physician notified.
--- NOTE | 2021-01-11 11:45 | PDOC3 ---
Discharge Summary Visit Information Date of Admission: Jan 11, 2021 Date of Discharge: Jan 11, 2021 Final Diagnosis Problems Medical Problems: (1) Cellulitis Status: Acute (2) Infected wound Status: Acute Brief Hospital Course Allergies Allergies Coded Allergies Type Severity Reaction Last Updated Verified No Known Drug Allergies 07/31/14 No Vital Signs Vital Signs Date Time Temp Pulse Resp B/P (MAP) Pulse Ox O2 Delivery O2 Flow Rate FiO2 01/11/21 08:00 Room Air 01/11/21 07:00 97.5 107 20 134/72 (92) 98 97.5 Lab Results Laboratory Tests Test 01/10/21 21:25 01/10/21 22:45 01/11/21 06:50 White Blood Count 9.5 x10^3/uL (4.0-11.0) 7.6 x10^3/uL (4.0-11.0) Red Blood Count 4.92 x10^6/uL (4.30-5.70) 4.75 x10^6/uL (4.30-5.70) Hemoglobin 14.7 g/dL (13.0-17.5) 14.3 g/dL (13.0-17.5) Hematocrit 44.1 % (39.0-53.0) 42.5 % (39.0-53.0) Mean Corpuscular Volume 90 fL (79-100) 90 fL (79-100) Mean Corpuscular Hemoglobin 30 pg (25-35) 30 pg (25-35) Mean Corpuscular Hemoglobin Concent 33 g/dL (31-37) 34 g/dL (31-37) Red Cell Distribution Width 14.0 % (11.5-14.5) 14.2 % (11.5-14.5) Platelet Count 157 x10^3/uL (140-400) 120 x10^3/uL (140-400) Neutrophils (%) (Auto) 66 % (31-73) 70 % (31-73) Lymphocytes (%) (Auto) 18 % (24-48) 16 % (24-48) Monocytes (%) (Auto) 14 % (0-9) 12 % (0-9) Eosinophils (%) (Auto) 1 % (0-3) 1 % (0-3) Basophils (%) (Auto) 1 % (0-3) 1 % (0-3) Neutrophils # (Auto) 6.3 x10^3/uL (1.8-7.7) 5.3 x10^3/uL (1.8-7.7) Lymphocytes # (Auto) 1.7 x10^3/uL (1.0-4.8) 1.2 x10^3/uL (1.0-4.8) Monocytes # (Auto) 1.3 x10^3/uL (0.0-1.1) 0.9 x10^3/uL (0.0-1.1) Eosinophils # (Auto) 0.1 x10^3/uL (0.0-0.7) 0.1 x10^3/uL (0.0-0.7) Basophils # (Auto) 0.1 x10^3/uL (0.0-0.2) 0.0 x10^3/uL (0.0-0.2) Sodium Level 142 mmol/L (136-145) 143 mmol/L (136-145) Potassium Level 4.3 mmol/L (3.5-5.1) 4.3 mmol/L (3.5-5.1) Chloride Level 107 mmol/L (98-107) 106 mmol/L (98-107) Carbon Dioxide Level 29 mmol/L (21-32) 31 mmol/L (21-32) Anion Gap 6 (6-14) 6 (6-14) Blood Urea Nitrogen 11 mg/dL (8-26) 11 mg/dL (8-26) Creatinine 1.0 mg/dL (0.7-1.3) 0.9 mg/dL (0.7-1.3) Estimated GFR (Cockcroft-Gault) 95.3 107.6 BUN/Creatinine Ratio 11 (6-20) Glucose Level 107 mg/dL (70-99) 108 mg/dL (70-99) Lactic Acid Level 1.1 mmol/L (0.4-2.0) Calcium Level 8.8 mg/dL (8.5-10.1) 8.4 mg/dL (8.5-10.1) Magnesium Level 1.8 mg/dL (1.8-2.4) Total Bilirubin 0.3 mg/dL (0.2-1.0) Aspartate Amino Transf (AST/SGOT) 14 U/L (15-37) Alanine Aminotransferase (ALT/SGPT) 20 U/L (16-63) Alkaline Phosphatase 58 U/L (46-116) Total Protein 7.4 g/dL (6.4-8.2) Albumin 3.4 g/dL (3.4-5.0) Albumin/Globulin Ratio 0.9 (1.0-1.7) Urine Collection Type Unknown Urine Color Yellow Urine Clarity Clear Urine pH 6.5 (<5.0-8.0) Urine Specific [place] <=1.005 (1.000-1.030) Urine Protein Negative mg/dL (NEG-TRACE) Urine Glucose (UA) Negative mg/dL (NEG) Urine Ketones (Stick) Negative mg/dL (NEG) Urine Blood Negative (NEG) Urine Nitrite Negative (NEG) Urine Bilirubin Negative (NEG) Urine Urobilinogen Dipstick 1.0 mg/dL (0.2 mg/dL) Urine Leukocyte Esterase Negative (NEG) Urine RBC 0 /HPF (0-2) Urine WBC 0 /HPF (0-4) Urine Bacteria 0 /HPF (0-FEW) Laboratory Tests Test 01/10/21 21:25 01/10/21 22:45 01/11/21 06:50 White Blood Count 9.5 x10^3/uL (4.0-11.0) 7.6 x10^3/uL (4.0-11.0) Red Blood Count 4.92 x10^6/uL (4.30-5.70) 4.75 x10^6/uL (4.30-5.70) Hemoglobin 14.7 g/dL (13.0-17.5) 14.3 g/dL (13.0-17.5) Hematocrit 44.1 % (39.0-53.0) 42.5 % (39.0-53.0) Mean Corpuscular Volume 90 fL (79-100) 90 fL (79-100) Mean Corpuscular Hemoglobin 30 pg (25-35) 30 pg (25-35) Mean Corpuscular Hemoglobin Concent 33 g/dL (31-37) 34 g/dL (31-37) Red Cell Distribution Width 14.0 % (11.5-14.5) 14.2 % (11.5-14.5) Platelet Count 157 x10^3/uL (140-400) 120 x10^3/uL (140-400) Neutrophils (%) (Auto) 66 % (31-73) 70 % (31-73) Lymphocytes (%) (Auto) 18 % (24-48) 16 % (24-48) Monocytes (%) (Auto) 14 % (0-9) 12 % (0-9) Eosinophils (%) (Auto) 1 % (0-3) 1 % (0-3) Basophils (%) (Auto) 1 % (0-3) 1 % (0-3) Neutrophils # (Auto) 6.3 x10^3/uL (1.8-7.7) 5.3 x10^3/uL (1.8-7.7) Lymphocytes # (Auto) 1.7 x10^3/uL (1.0-4.8) 1.2 x10^3/uL (1.0-4.8) Monocytes # (Auto) 1.3 x10^3/uL (0.0-1.1) 0.9 x10^3/uL (0.0-1.1) Eosinophils # (Auto) 0.1 x10^3/uL (0.0-0.7) 0.1 x10^3/uL (0.0-0.7) Basophils # (Auto) 0.1 x10^3/uL (0.0-0.2) 0.0 x10^3/uL (0.0-0.2) Sodium Level 142 mmol/L (136-145) 143 mmol/L (136-145) Potassium Level 4.3 mmol/L (3.5-5.1) 4.3 mmol/L (3.5-5.1) Chloride Level 107 mmol/L (98-107) 106 mmol/L (98-107) Carbon Dioxide Level 29 mmol/L (21-32) 31 mmol/L (21-32) Anion Gap 6 (6-14) 6 (6-14) Blood Urea Nitrogen 11 mg/dL (8-26) 11 mg/dL (8-26) Creatinine 1.0 mg/dL (0.7-1.3) 0.9 mg/dL (0.7-1.3) Estimated GFR (Cockcroft-Gault) 95.3 107.6 BUN/Creatinine Ratio 11 (6-20) Glucose Level 107 mg/dL (70-99) 108 mg/dL (70-99) Lactic Acid Level 1.1 mmol/L (0.4-2.0) Calcium Level 8.8 mg/dL (8.5-10.1) 8.4 mg/dL (8.5-10.1) Magnesium Level 1.8 mg/dL (1.8-2.4) Total Bilirubin 0.3 mg/dL (0.2-1.0) Aspartate Amino Transf (AST/SGOT) 14 U/L (15-37) Alanine Aminotransferase (ALT/SGPT) 20 U/L (16-63) Alkaline Phosphatase 58 U/L (46-116) Total Protein 7.4 g/dL (6.4-8.2) Albumin 3.4 g/dL (3.4-5.0) Albumin/Globulin Ratio 0.9 (1.0-1.7) Urine Collection Type Unknown Urine Color Yellow Urine Clarity Clear Urine pH 6.5 (<5.0-8.0) Urine Specific [place] <=1.005 (1.000-1.030) Urine Protein Negative mg/dL (NEG-TRACE) Urine Glucose (UA) Negative mg/dL (NEG) Urine Ketones (Stick) Negative mg/dL (NEG) Urine Blood Negative (NEG) Urine Nitrite Negative (NEG) Urine Bilirubin Negative (NEG) Urine Urobilinogen Dipstick 1.0 mg/dL (0.2 mg/dL) Urine Leukocyte Esterase Negative (NEG) Urine RBC 0 /HPF (0-2) Urine WBC 0 /HPF (0-4) Urine Bacteria 0 /HPF (0-FEW) Brief Hospital Course Mr. Edmond is a 50 old male who presented with cellulitis right third toe. X-ray right foot showed hallux valgus with lateral subluxation of the sesamoids, hallux MTP DJD, soft tissue swelling about the forefoot without evidence of osteomyelitis. It is unclear when his cellulitis started. He received vancomycin in the ED. I was not given report that he had been treated with out patient antibiotics, and no known history of fever. I believe patient can discharge home on oral Augmentin and wound care. Greater than 30 minutes was spent in the discharge of this patient. Discharge Information Condition at Discharge: Stable Follow Up: Weeks Disposition/Orders: D/C to Home w/ HH Scheduled Benztropine Mesylate (Benztropine Mesylate) 2 Mg Tablet, 2 MG PO HS for tremors, (Reported) Entered as Reported by: KENNEDI BOOGIE on 05/25/20 1122 Last Action: Converted on 01/11/21844 by SHYAM VALERIO MD Divalproex Sodium (Divalproex Sodium) 500 Mg Tablet.dr, 500 MG PO TID, (Reported) Entered as Reported by: KRISTINE DANIEL on 07/31/141420 Last Action: Continued on 01/11/21844 by SHYAM VALERIO MD Docusate Sodium (Silace) 50 Mg/5 Ml Liquid, 10 ML PO QHS, (Reported) Entered as Reported by: KRSITINE DANIEL on 07/31/141420 Last Action: Continued on 01/11/21844 by SHYAM VALERIO MD Doxycycline Hyclate (Doxycycline Hyclate) 100 Mg Tablet, 100 MG PO BID for cellulitis for 3 Days, #6 Prescribed by: CARLEY ESCALANTE MD on 05/26/20 0754 Haloperidol (Haloperidol) 5 Mg Tablet, 10 MG PO TID for agitation, #60 Ref 1 (Reported) Entered as Reported by: KRISTINE DANIEL on 07/31/141420 Last Action: Continued on 01/11/21844 by SHYAM VALERIO MD Loratadine (Loratadine) 10 Mg Tablet, 1 TAB PO DAILY, #30 Ref 5 (Reported) Entered as Reported by: KRISTINE DANIEL on 07/31/141420 Methylcellulose (With Sugar) (Citrucel Powder) 454 Gm Powder, 1 PO DAILY, (Reported) Entered as Reported by: KRISTINE DANIEL on 07/31/141420 Scheduled PRN Acetaminophen (Acetaminophen) 500 Mg Tablet, 1 TAB PO Q4-6HRS PRN for PAIN / TEMP, #60 (Reported) Entered as Reported by: KRISTINE DANIEL on 07/31/141420 Diphenhydramine Hcl (Diphenhydramine Hcl) 50 Mg Capsule, 25 MG PO for ALLERGIES, (Reported) Entered as Reported by: KRISTINE DANIEL on 07/31/141420 Eucalyptus/Menthol (Gnp Cough Drops) 1 Each Lozenge, 1 EACH MM for COUGH, (Reported) Entered as Reported by: KRISTINE DANIEL on 07/31/141420 Guaifenesin/Dextromethorphan (Gnp Tussin Dm Max Liquid) 118 Ml Liquid, 2 TSP PO Q4HRS PRN for COUGH, (Reported) Entered as Reported by: KRISTINE DANIEL on 07/31/141420 Hydrocortisone (Hydrocortisone) 59 Ml Lotion, 1 DEREK TP for ITCHING, #60 (Reported) Entered as Reported by: KRISTINE DANIEL on 07/31/141420 Loperamide Hcl (Loperamide) 2 Mg Tablet, 2 MG PO for DIARRHEA, (Reported) Entered as Reported by: KRISTINE DANIEL on 07/31/141420 Mag Hydrox/Al Hydrox/Simeth (Gnp Antacid Anti-Gas Liquid) 355 Ml Oral.susp, Unknown Dose PO for HEARTBURN / GAS, (Reported) Entered as Reported by: KRISTINE DANIEL on 07/31/141420 Magnesium Hydroxide (Milk Of Magnesia) 400 Mg/5 Ml Oral.susp, 400 MG PO for CONSTIPATION, (Reported) Entered as Reported by: KRISTINE DANIEL on 07/31/141420 Pseudoephedrine Hcl (Sudogest) 30 Mg Tablet, 30 MG PO for NASAL CONGESTION, (Reported) Entered as Reported by: KRISTINE DANIEL on 07/31/141420 Miscellaneous Medications [debrox solution 6%] , (Reported) Entered as Reported by: KRISTINE DANIEL on 07/31/141420 Justicifation of Admission Dx: Justifications for Admission: Justification of Admission Dx: Yes Cellulitis: Cellulitis SHYAM VALERIO MD Jan 11, 2021 11:45
[2021-01-11] MEDS ORDERED: AMOX1TAB11 PO (11:47)
--- NOTE | 2021-01-11 11:50 | SNU/HH DC ---
DISCHARGE WITH HOME HEALTH DISCHARGE INFORMATION: Final Diagnosis: Problems Medical Problems: (1) Cellulitis Status: Acute (2) Infected wound Status: Acute Condition on Discharge: Stable CODE STATUS: Code Status: Full HOME HEALTH: Face to Face: I certify this patient is under my care and that I, or a nurse practitioner or physician's district administrative assistant working with me, had a face to face encounter that meets the physician face to face encounter requirements with this patient on 01/11/2021. Custodial For: Wound Care (Skin breakdown between right second and third toe) RN For Eval/Treatment: Yes Pt Meets Homebound Status: Poor coordination w/ amb., Unsteady balance w/ amb, POST DISCHARGE ORDERS: Activity Instructions for Disc: Activity as tolerated Weight Bearing Status after Di: No restrictions DIET AFTER DISCHARGE: Cardiac Wound/Incision Care: Keep wound/cast CDI, Change dressing CHECKS AFTER DISCHARGE: Checks after discharge: Check blood sugar, ac/hs TREATMENT/EQUIPMENT ORDERS: Adaptive Equipment Issued: None CERTIFICATION STATEMENT: Certification Statement: Certification Statement: Based on the above finding, I certify that this patient is confined to the home and needs intermittent mcfp care, physical therapy and/or speech therapy, or continues to need occupational therapy.~ This patient is under my care, and I have initiated the establishment of the plan of care.~ This patient will be followed by myself or a community physician who will periodically review the plan of care. Home Meds Active Scripts Amoxicillin/Potassium Clav (AMOX TR-K CLV 875-125 MG TAB) 1 Each Tablet, 1 TAB PO BID for Cellulitis for 10 Days, #20 TAB Prov:SHYAM VALERIO MD 01/11/21 Doxycycline Hyclate (DOXYCYCLINE HYCLATE) 100 Mg Tablet, 100 MG PO BID for cellulitis for 3 Days, #6 TAB Prov:CARLEY ESCALANTE MD 05/26/20 Reported Medications Benztropine Mesylate (BENZTROPINE MESYLATE) 2 Mg Tablet, 2 MG PO HS for tremors, TAB 05/25/20 Pseudoephedrine Hcl (SUDOGEST) 30 Mg Tablet, 30 MG PO PRN for NASAL CONGESTION 07/31/14 Loperamide Hcl (LOPERAMIDE) 2 Mg Tablet, 2 MG PO PRN for DIARRHEA 07/31/14 Hydrocortisone (HYDROCORTISONE) 59 Ml Lotion, 1 DEREK TP PRN for ITCHING, #60 ML 07/31/14 Guaifenesin/Dextromethorphan (GNP TUSSIN DM MAX LIQUID) 118 Ml Liquid, 2 TSP PO Q4HRS PRN for COUGH, LIQUID 07/31/14 Magnesium Hydroxide (MILK OF MAGNESIA) 400 Mg/5 Ml Oral.susp, 400 MG PO PRN for CONSTIPATION 07/31/14 Eucalyptus/Menthol (GNP COUGH DROPS) 1 Each Lozenge, 1 EACH MM PRN for COUGH, LOZENGE 07/31/14 Mag Hydrox/Al Hydrox/Simeth (GNP ANTACID ANTI-GAS LIQUID) 355 Ml Oral.susp, PO PRN for HEARTBURN / GAS 07/31/14 Diphenhydramine Hcl (DIPHENHYDRAMINE HCL) 50 Mg Capsule, 25 MG PO PRN for ALLERGIES 07/31/14 [debrox solution 6%] No Conflict Check 07/31/14 Acetaminophen (ACETAMINOPHEN) 500 Mg Tablet, 1 TAB PO Q4-6HRS PRN for PAIN / TEMP, #60 TAB 07/31/14 Methylcellulose (With Sugar) (CITRUCEL POWDER) 454 Gm Powder, 1 PO DAILY 07/31/14 Docusate Sodium (SILACE) 50 Mg/5 Ml Liquid, 10 ML PO QHS, LIQUID 07/31/14 Loratadine (LORATADINE) 10 Mg Tablet, 1 TAB PO DAILY, #30 TAB 5 Refills 07/31/14 Haloperidol (HALOPERIDOL) 5 Mg Tablet, 10 MG PO TID for agitation, #60 TAB 1 Refill 07/31/14 Divalproex Sodium (DIVALPROEX SODIUM) 500 Mg Tablet.dr, 500 MG PO TID, TAB 07/31/14 SHYAM VALERIO MD Jan 11, 2021 11:50
--- NOTE | 2021-01-11 14:55 | NUR ---
PATIENT DISCHARGED TO [facility]. DISCHARGE INSTRUCTIONS GIVEN TO MARIZA CREDIT ASSESSMENT ANALYST. MONITOR OFF, PIV REMOVED. ESCORTED PATIENT OFF UNIT INTO A [facility].
[2021-01-11] MEDS ORDERED: DOCUSATE 100 MG/10 ML SOLUTION. PO SCH (21:00)
[2021-01-11] MEDS ORDERED: BENZTROPINE MESYLATE 1 MG TABLET. PO SCH (21:00)
[2021-01-11] MEDS ORDERED: LACTOBACILLUS RHAMNOSUS GG 1 CAPSULE. PO SCH (21:00)
== END 2021-01-11 14:50 | disposition home health service (06) | DRG 603 ==
LOC: ER 17:21 → 2 NORTH 21:56
PROVIDERS: ADMIT Internal Medicine; ATTEND Internal Medicine
DX: L03.031 Cellulitis of right toe (principal); F72 Severe intellectual disabilities; M20.11 Hallux valgus (acquired), right foot; M19.071 Primary osteoarthritis, right ankle and foot
CPT/HCPCS: 36415; 73630; 80048; 80053; 81001; 83605; 83735; 85025; 87040; 96365; 96366; J2060; J3370; J7040; J7050; 99285-25; G0378; J7030

== ENCOUNTER 2021-03-31 19:25 | Emergency (ER) | payer OTHER, MEDICAID ==
[~2021-03-31] VITALS: Ht 175.3 cm; Wt 65.0 kg
[~2021-03-31 19:25] MED LIST changes: +AMOX1TAB11 PO
--- NOTE | 2021-03-31 20:28 | PHYS DOC ---
Past Medical History Past Medical History: Seizure, Other Additional Past Medical Histor: SEASONAL ALLERGIES, MENTAL RETARDATION Past Surgical History: Other Additional Past Surgical Histo: UNKNOWN Smoking Status: Unknown if ever smoked Additional Information: lives in a detention Alcohol Use: None Drug Use: None General Adult EDM: Chief Complaint: General weakness, fever, possible body aches and exposed to COVID-19 HPI: HPI: 51-year-old male resides in a detention, did receive a single dose [employer] vaccine in October 2020, is brought in by caregivers for 1 day of general weakness and lower energy level, caregiver says normally he is exuberant but has been more reserved, intermittent fevers, a dry cough just darted today, no nausea or vomiting, patient cannot give a complete history given his autism/mental retardation, she says that several other members of the detention had similar symptoms and they are concerned about a COVID-19 outbreak. Patient did not have any other complaints Review of Systems: Review of Systems: Review of systems was obtained from the caregiver General: Positive for fevers, general weakness, no chills however Eyes: no blurred vision, no diplopia Skin: no rashes Neck: no swelling, no neck stiffness, no neck pain Heme: no bleeding, no lymph node enlargement Ear/Nose/Throat: No sore throat, no runny nose, no hearing loss, no difficulty swallowing Cardiovascular: no Chest pain, no palpitations Respiratory: No dyspnea, + cough, no hemoptysis Gastrointestinal: No abdominal pain, no nausea, no vomiting, no diarrhea, no blood in stool Genitourinary: no dysuria, no hematuria Musculoskeletal: no back pain, no leg pain, no arm pain, no arthralgia Neurologic: no headaches, no dizziness, no focal numbness/tingling, no focal weakness Psych: no depression, no anxiety, no SI/HI *All review of systems are negative other than what is noted above Heart Score: C/O Chest Pain: No Risk Factors: Risk Factors: DM, Current or recent (<one month) smoker, HTN, HLP, family history of CAD, obesity. Risk Scores: Score 0 - 3: 2.5% MACE over next 6 weeks - Discharge Home Score 4 - 6: 20.3% MACE over next 6 weeks - Admit for Clinical Observation Score 7 - 10: 72.7% MACE over next 6 weeks - Early Invasive Strategies Allergies: Allergies: Allergies Coded Allergies Type Severity Reaction Last Updated Verified No Known Drug Allergies 07/31/14 No Physical Exam: PE: Gen-well appearing, no acute distress Head: Normocephalic/Atraumatic ENT: atraumatic, PERRLA, EOMI, oropharynx clear Neck: supple, full ROM/strength, no JVD, no nuchal rigidity Lungs: no distress, speaks in full sentences, Clear to auscultation bilaterally CV: reg rate, rhythm, no murmus/rubs/gallops, peripheral pulses equal in all extremities Abdomen: soft/nontender, no guarding/rebound tenderness, no rigidity, non distended, normoactive bowel sounds Musculoskeletal: full ROM/strength in all extremities, atraumatic, no swelling Back: full range of motion/strength Skin: intact, no rashes Lymph: no gross STEPHANIE Neuro: alert and oriented appropriately per baseline but the patient does have a history of mental retardation, otherwise, no acute focal neurologic deficits or abnormal movements Current Patient Data: Vital Signs: Vital Signs Date Time Temp Pulse Resp B/P (MAP) Pulse Ox O2 Delivery O2 Flow Rate FiO2 03/31/21 20:14 100.0 91 24 139/63 (92) 94 Room Air 100.0 EKG: EKG: [] Radiology/Procedures: Radiology/Procedures: [] Course & Med Decision Making: Course & Med Decision Making Pertinent Labs and Imaging studies reviewed. (See chart for details) [] 51-year-old male brought in from the detention for evaluation of a flulike illness, the patient is afebrile nontoxic-appearing, concern for COVID-19 although the differential diagnosis includes but not limited to a UTI, possibly pneumonia, unlikely any acute stroke or any intracranial infection, unlikely any intra-abdominal process, plan is a rapid Covid test, chest x-ray, urinalysis, vital signs are otherwise within normal limits and he is afebrile, will reevaluate exam the patient after work-up determine the best course of action is more data becomes available Reevaluation at 9:12 PM: The patient is positive for COVID-19, the x-ray is ne gative, believe he stable for discharge at this time Patient was seen in the ED for COVID-19 infection, there is no apparent evidence of any emergency medical pathology at this time, patient was advised follow-up with their primary care provider /physician in the next 24-48 hours and to return to the ED before then if any new or worsening / concerning symptoms had developed. All questions and concerns were addressed at time of disposition The questions and concerns were addressed with the caregiver as the patient has mental retardation Jose Alberto Disclaimer: Jose Alberto Disclaimer: This electronic medical record was generated, in whole or in part, using a voice recognition dictation system. Departure Departure Impression: Primary Impression: COVID-19 Disposition: HOME HEALTH CARE SERVICE Condition: IMPROVED Referrals: ANDREY HANCOCK MD (PCP) 2 days Patient Instructions: Cough, Adult Additional Instructions: Unfortunately he is positive for COVID-19, the good news is the x-ray is normal and he has normal oxygenation, I am going to start him on a steroid pack which can help alleviate some of the symptoms, he needs to isolate as best as possible over the next 10 days. I recommend that he follow-up with his primary care provider/doctor in the next 48 hours, please bring him back to the emergency french m before then if any new or worsening/concerning symptoms develop Scripts Methylprednisolone (MEDROL) 4 Mg Tab.ds.pk 1 PKG PO UD for inflammation, #1 PKG Prov: ELENA LY MD 03/31/21 Guaifenesin/Dextromethorphan (Robitussin Cough-Chest Dm Liq) 237 Ml Liquid 237 ML PO BID PRN for COUGH for 5 Days, #355 LIQUID Prov: ELENA LY MD 03/31/21 ELENA LY MD Mar 31, 2021 20:28
[2021-03-31 20:42] LABS: BILIRUBIN,URINE SMALL (NEG); CLARITY,URINE CLEAR; COLOR,URINE AMBER; NITRITE,URINE NEGATIVE (NEG); PROTEIN,URINE 30 mg/dL (NEG-TRACE)
[2021-03-31 20:51] LABS: BACTERIA,URINE MOD /HPF (0-FEW); WBC,URINE 20-40 /HPF (0-4)
[2021-03-31 20:52] LABS: RBC,URINE 0 /HPF (0-2)
[2021-03-31 21:03] VITALS: BP 114/55
[2021-03-31] MEDS ORDERED: GUAI237L83 PO (21:15)
[2021-03-31] MEDS ORDERED: METH4TAB2 PO (21:15)
--- NOTE | 2021-03-31 22:13 | RAD ---
XR CHEST 1V INDICATION: cough . COMPARISON STUDY: None. FINDINGS: Lungs: Normal lung volume. Patchy bilateral opacities. The tracheobronchial tree and hilar structures are normal. Pleura: No pleural effusion or pneumothorax. Heart and Mediastinum: The cardiomediastinal silhouette is normal. The great vessels of the thorax ar e normal. IMPRESSION: Patchy bilateral opacities, likely multifocal infection. Electronically signed by: Arnold Nunez MD (03/31/2021 10:11 PM) [facility]ITALJose
== END 2021-03-31 21:24 | disposition home or self-care (01) ==
LOC: ER 19:25
DX: U07.1 COVID-19 (principal)
CPT/HCPCS: 71045; 81001; 87426; 99284